=== PATIENT | female | born 1935 | race Caucasian/White ===

== ENCOUNTER 2018-09-22 18:44 | Emergency (ER) | payer OTHER ==
--- OUTSIDE RECORDS SUMMARY | 2018-09-22 18:46 | XMS REPORT ---
:1935 [facility] Address [address] [place] [address] Dr. Cooper [address] [place] [id number] Care Team Providers Name Role Phone Unavailable Unavailable Unavailable Problems This patient has no known problems. Allergies, Adverse Reactions, Alerts This patient has no known allergies or adverse reactions. Medications This patient has no known medications.
[2018-09-22 19:52] LABS: Urine Blood NEGATIVE (NEG); Urine Glucose NEGATIVE (NEG); Urine Protein NEGATIVE (NEG); Urine Specific Gravity <1.005 (1.005-1.030); Urine pH 5.5 (5.0-7.0)
[2018-09-22 20:01] LABS: Absolute Lymphocytes (CBC) 1.4 K/uL (0.7-4.9); Absolute Monocytes 0.5 K/uL (0.1-1.3); Absolute Neutrophil 3.2 K/uL (1.8-8.0); Basophils % 0.5 % (0-1.3); Hematocrit 34.7 % (36.0-45.0); Lymphocytes % 27.2 % (15.3-44.8); MPV 7.5 fL (7.6-11.3); Monocytes % 9.2 % (3.3-12.3); RBC Red Blood Cell Count 3.79 M/uL (3.86-4.86)
[2018-09-22] MEDS ORDERED: NA CHLORIDE 0.9% 1,000 ML ONE (20:08)
[2018-09-22 20:16] LABS: Protime INR 0.9
[2018-09-22 20:17] LABS: ALT/SGPT 18 U/L (12-78); AST/SGOT 19 U/L (15-37); Albumin 3.3 g/dL (3.4-5.0); Alkaline Phosphatase 70 U/L (45-117); BUN Blood Urea Nitrogen 9 mg/dL (7-18); Bicarbonate 30 mmol/L (21-32); Bilirubin Direct 0.1 mg/dL (0-0.2); Bilirubin Total 0.5 mg/dL (0.2-1.0); CKMB Creatine Kinase MB 2.4 ng/mL (0.3-3.6); Creatine Phosphokinase 70 U/L (26-192); Glucose Level 111 mg/dL (74-106); Lipase 165 U/L (73-393); Potassium 3.5 mmol/L (3.5-5.1); Protein, Total 6.2 g/dL (6.4-8.2); Sodium Level 140 mmol/L (136-145); Troponin (Emerg Dept Use Only) < 0.02 ng/mL (0.0-0.045)
--- NOTE | 2018-09-22 21:09 | EDPHYS ---
Physician Documentation [facility] Name: Mary Damian Age: 83 yrs Sex: Female : 1935 Arrival Date: 09/22/2018 Time: 18:46 Bed 30 Private MD: ED Physician Naun Looney HPI: 09/22 19:45 This 83 yrs old Female presents to ER via EMS with complaints of ma2 lightheadedness . 19:45 Onset: The symptoms/episode began/occurred gradually, 1 week(s) ago. Severity of ma2 symptoms: At their worst the symptoms were moderate in the emergency department the symptoms are unchanged. The patient has experienced similar episodes in the past. Historical: - Allergies: 19:00 BENZODIAZEPINES; ( Ativan, Lorazepam, Librax); ca1 19:00 Codeine; ca1 19:00 Morphine; ca1 19:00 Actonel; ca1 19:00 Evista; ca1 19:00 Pure Vitamins; ca1 19:00 Very Sensitive to Hogh dosage of any meds; ca1 - Home Meds: 19:00 metoprolol succinate 25 mg oral Tb24 2 tabs once daily [Active]; aspirin 325 mg Oral ca1 tab 0.5 tab once daily [Active]; Citracal Oral [Active]; hydrocortisone acetate 25 mg Rectal supp prn for Hemorrhoids [Active]; Deplin (algal oil) oral oral [Active]; Chlordiazepoxide 2.5mg Oral 1 cap daily [Active]; - PMHx: 19:00 Irritable bowel syndrome; Irregular heart rate; ca1 - PSHx: 19:00 Hysterectomy; foot surgery; Cataract Surgery; ca1 - Immunization history:: Adult Immunizations up to date, Pneumococcal vaccine is up to date, Flu vaccine is up to date. - Social history:: Smoking status: Patient/guardian denies using tobacco, Patient/guardian denies using alcohol, street drugs, The patient lives with family. - Ebola Screening: : No symptoms or risks identified at this time. - Family history:: not pertinent. - Hospitalizations: : No recent hospitalization is reported. ROS: 19:45 Constitutional: Negative for fever, chills, and weight loss, Eyes: Negative for injury, ma2 pain, redness, and discharge, Cardiovascular: Negative for chest pain, palpitations, and edema, Respiratory: Negative for shortness of breath, cough, wheezing, and pleuritic chest pain, Abdomen/GI: Negative for abdominal pain, nausea, diarrhea, and constipation, MS/Extremity: Negative for injury and deformity, Neuro: Negative for headache, weakness, numbness, tingling, and seizure. 19:45 All other systems are negative. Exam: 19:45 Constitutional: This is a well developed, well nourished patient who is awake, alert, ma2 and in no acute distress. Head/Face: Normocephalic, atraumatic. Eyes: Pupils equal round and reactive to light, extra-ocular motions intact. Lids and lashes normal. Conjunctiva and sclera are non-icteric and not injected. Cornea within normal limits. Periorbital areas with no swelling, redness, or edema. ENT: Nares patent. No nasal discharge, no septal abnormalities noted. Tympanic membranes are normal and external auditory canals are clear. Oropharynx with no redness, swelling, or masses, exudates, or evidence of obstruction, uvula midline. Mucous membranes moist. Neck: Trachea midline, no thyromegaly or masses palpated, and no cervical lymphadenopathy. Supple, full range of motion without nuchal rigidity, or vertebral point tenderness. No Meningismus. Chest/axilla: Normal chest wall appearance and motion. Nontender with no deformity. No lesions are appreciated. Cardiovascular: Regular rate and rhythm with a normal S1 and S2. No gallops, murmurs, or rubs. Normal PMI, no JVD. No pulse deficits. Respiratory: Lungs have equal breath sounds bilaterally, clear to auscultation and percussion. No rales, rhonchi or wheezes noted. No increased work of breathing, no retractions or nasal flaring. Abdomen/GI: Soft, non-tender, with normal bowel sounds. No distension or tympany. No guarding or rebound. No evidence of tenderness throughout. Back: No spinal tenderness. No costovertebral tenderness. Full range of motion. Skin: Warm, dry with normal turgor. Normal color with no rashes, no lesions, and no evidence of cellulitis. MS/ Extremity: Pulses equal, no cyanosis. Neurovascular intact. Full, normal range of motion. Neuro: Awake and alert, GCS 15, oriented to person, place, time, and situation. Cranial nerves II-XII grossly intact. Motor strength 5/5 in all extremities. Sensory grossly intact. Cerebellar exam normal. Normal gait. Vital Signs: 19:00 BP 149 / 76; Pulse 67; Resp 18; Temp 98.5; Pulse Ox 98% on R/A; Weight 48.99 kg; Height ca1 5 ft. 2 in. (157.48 cm); Pain 0/10; 20:00 BP 130 / 59; Pulse 63; Resp 19; Pulse Ox 97% on R/A; ca1 21:13 BP 113 / 92; Pulse 60; Resp 19; Pulse Ox 98% on R/A; ca1 19:00 Body Mass Index 19.75 (48.99 kg, 157.48 cm) ca1 MDM: 19:10 Patient medically screened. ma2 19:45 Differential Diagnosis dehydration, URI, pneumonia . ma2 21:08 Data reviewed: vital signs, nurses notes. Counseling: I had a detailed discussion with ma2 the patient and/or guardian regarding: the historical points, exam findings, and any diagnostic results supporting the discharge/admit diagnosis, the presence of at least one elevated blood pressure reading (>120/80) during this emergency department visit, the need for outpatient follow up. Response to treatment: the patient's symptoms have markedly improved after treatment. 09/22 19:32 Order name: Basic Metabolic Panel; Complete Time: 20:40 ma2 09/22 19:32 Order name: CBC with Diff; Complete Time: 20:40 ma2 09/22 19:32 Order name: Ckmb; Complete Time: 20:40 ma2 09/22 19:32 Order name: CPK; Complete Time: 20:40 ma2 09/22 19:32 Order name: Hepatic Function; Complete Time: 20:40 ma2 09/22 19:32 Order name: Lipase; Complete Time: 20:40 ma2 09/22 19:32 Order name: Magnesium; Complete Time: 20:40 ma2 09/22 19:32 Order name: Protime (+inr); Complete Time: 20:40 ma2 09/22 19:32 Order name: Ptt, Activated; Complete Time: 20:40 ma2 09/22 19:32 Order name: Troponin (emerg Dept Use Only); Complete Time: 20:40 ma2 09/22 19:32 Order name: EKG; Complete Time: 19:32 ma2 09/22 19:32 Order name: Cardiac monitoring; Complete Time: 20:53 ma2 09/22 19:37 Order name: Urine Dipstick--Ancillary (enter results); Complete Time: 20:40 ar5 09/22 19:32 Order name: EKG - Nurse/Tech; Complete Time: 20:53 ma2 09/22 19:32 Order name: IV Saline Lock; Complete Time: 20:53 ma2 09/22 19:32 Order name: Labs collected and sent; Complete Time: 20:53 ma2 09/22 19:32 Order name: NPO; Complete Time: 20:53 ma2 09/22 19:32 Order name: O2 Per Protocol; Complete Time: 20:53 ma2 09/22 19:32 Order name: O2 Sat Monitoring; Complete Time: 20:53 ma2 09/22 19:32 Order name: Urine Dipstick-Ancillary (obtain specimen); Complete Time: 20:53 ma2 Administered Medications: 19:55 Drug: NS 0.9% 1000 ml Route: IV; Rate: 1 bolus; Site: left forearm; ca1 21:00 Follow up: IV Status: Completed infusion ca1 Disposition: 09/22/18 21:09 Discharged to Home. Impression: Dehydration. - Condition is Stable. - Discharge Instructions: Dehydration, Adult. - Medication Reconciliation Form, Thank You Letter, Antibiotic Education, Prescription Opioid Use form. - Follow up: Private Physician; When: Tomorrow; Reason: Continuance of care. Signatures: Dispatcher [employer] EDMS Naun Looney MD MD ma2 Anette Sosa RN RN ca1 Corrections: (The following items were deleted from the chart) 21:32 21:09 09/22/2018 21:09 Discharged to Home. Impression: Dehydration. Condition is ca1 Stable. Forms are Medication Reconciliation Form, Thank You Letter, Antibiotic Education, Prescription Opioid Use. Follow up: Private Physician; When: Tomorrow; Reason: Continuance of care. ma2
--- NOTE | 2018-09-22 21:09 | ER ---
Nurse's Notes [facility] Name: Mary Damian Age: 83 yrs Sex: Female : 1935 Arrival Date: 09/22/2018 Time: 18:46 Bed 30 Private MD: Diagnosis: Dehydration Presentation: 09/22 18:47 Presenting complaint: EMS states: Pt had episodes of near syncope episode on Saturday. ca1 Was seen at [facility] for dehydration and sent home. Today at noon time, pt complains of dizziness and weakness. VS stable, O2 sat 100% at RA. Transition of care: patient was not received from another setting of care. Onset of symptoms was September 22, 2018. Risk Assessment: Do you want to hurt yourself or someone else? Patient reports no desire to harm self or others. Initial Sepsis Screen: Does the patient meet any 2 criteria? No. Patient's initial sepsis screen is negative. Does the patient have a suspected source of infection? No. Patient's initial sepsis screen is negative. Care prior to arrival: IV initiated. 20 GA, in the left forearm, Glucose check: 119. 18:47 Method Of Arrival: EMS: [facility] ca1 18:47 Acuity: NICOLAS 3 ca1 Triage Assessment: 19:00 General: Appears in no apparent distress. comfortable, Behavior is calm, cooperative, ca1 appropriate for age. Pain: Denies pain. Historical: - Allergies: 19:00 BENZODIAZEPINES; ( Ativan, Lorazepam, Librax); ca1 19:00 Codeine; ca1 19:00 Morphine; ca1 19:00 Actonel; ca1 19:00 Evista; ca1 19:00 Pure Vitamins; ca1 19:00 Very Sensitive to Hogh dosage of any meds; ca1 - Home Meds: 19:00 metoprolol succinate 25 mg oral Tb24 2 tabs once daily [Active]; aspirin 325 mg Oral ca1 tab 0.5 tab once daily [Active]; Citracal Oral [Active]; hydrocortisone acetate 25 mg Rectal supp prn for Hemorrhoids [Active]; Deplin (algal oil) oral oral [Active]; Chlordiazepoxide 2.5mg Oral 1 cap daily [Active]; - PMHx: 19:00 Irritable bowel syndrome; Irregular heart rate; ca1 - PSHx: 19:00 Hysterectomy; foot surgery; Cataract Surgery; ca1 - Immunization history:: Adult Immunizations up to date, Pneumococcal vaccine is up to date, Flu vaccine is up to date. - Social history:: Smoking status: Patient/guardian denies using tobacco, Patient/guardian denies using alcohol, street drugs, The patient lives with family. - Ebola Screening: : No symptoms or risks identified at this time. - Family history:: not pertinent. - Hospitalizations: : No recent hospitalization is reported. Screenin:00 Abuse screen: Denies threats or abuse. Denies injuries from another. Nutritional ca1 screening: No deficits noted. Tuberculosis screening: No symptoms or risk factors identified. Fall Risk Fall in past 12 months (25 points). Assessment: 19:00 General: Appears in no apparent distress. comfortable, Behavior is calm, cooperative, ca1 appropriate for age. General:. Pain: Denies pain. Neuro: Neuro: Level of Consciousness is awake, alert, obeys commands, Oriented to person, place, time, situation, Reports dizziness, since 3 days ago. Cardiovascular: Heart tones S1 S2 present Capillary refill < 3 seconds Patient's skin is warm and dry. Respiratory: Airway is patent Respiratory effort is even, unlabored, Respiratory pattern is regular, symmetrical, Breath sounds are clear bilaterally. GI: Abdomen is flat, non-distended, Bowel sounds present X 4 quads. Abd is soft and non tender X 4 quads. Reports diarrhea, couple of weeks prior to dizziness. : No deficits noted. No signs and/or symptoms were reported regarding the genitourinary system. EENT: No deficits noted. No signs and/or symptoms were reported regarding the EENT system. Derm: Skin is intact, is fragile, Skin is pink, warm \T\ dry. Musculoskeletal: Circulation, motion, and sensation intact. Capillary refill < 3 seconds. 20:00 Reassessment: Patient appears in no apparent distress at this time. No changes from ca1 previously documented assessment. Patient and/or family updated on plan of care and expected duration. Pain level reassessed. Patient is alert, oriented x 3, equal unlabored respirations, skin warm/dry/pink. 21:13 Reassessment: Patient appears in no apparent distress at this time. Patient and/or ca1 family updated on plan of care and expected duration. Pain level reassessed. Patient is alert, oriented x 3, equal unlabored respirations, skin warm/dry/pink. Vital Signs: 19:00 BP 149 / 76; Pulse 67; Resp 18; Temp 98.5; Pulse Ox 98% on R/A; Weight 48.99 kg; Height ca1 5 ft. 2 in. (157.48 cm); Pain 0/10; 20:00 BP 130 / 59; Pulse 63; Resp 19; Pulse Ox 97% on R/A; ca1 21:13 BP 113 / 92; Pulse 60; Resp 19; Pulse Ox 98% on R/A; ca1 19:00 Body Mass Index 19.75 (48.99 kg, 157.48 cm) ca1 ED Course: 18:46 Patient arrived in ED. ca1 18:50 Triage completed. ca1 19:00 Arm band placed on. Arm band placed on right wrist. EKG completed in triage. Results ca1 shown to MD. 19:00 Patient has correct armband on for positive identification. Placed in gown. Bed in low ca1 position. Call light in reach. Side rails up X 1. residential monitor on. Pulse ox on. NIBP on. Warm blanket given. 19:00 Maintain EMS IV. Dressing intact. Good blood return noted. Site clean \T\ dry. Gauge \T\ ca 1 site: #20 at [facility]. 19:10 Naun Looney MD is Attending Physician. ma2 19:55 Anette Sosa, TAMIKO is Primary Nurse. ca1 21:25 No provider procedures requiring assistance completed. IV discontinued, intact, ca1 bleeding controlled, No redness/swelling at site. Pressure dressing applied. Administered Medications: 19:55 Drug: NS 0.9% 1000 ml Route: IV; Rate: 1 bolus; Site: left forearm; ca1 21:00 Follow up: IV Status: Completed infusion ca1 Outcome: 21:09 Discharge ordered by . ma2 21:25 Discharged to home via wheelchair. ca1 21:25 Condition: stable 21:25 Discharge instructions given to patient, Instructed on discharge instructions, follow up and referral plans. Demonstrated understanding of instructions, follow-up care. 21:32 Patient left the ED. ca1 Signatures: Naun Looney MD MD scAnette Roman RN RN ca1
[2018-09-22 23:13] VITALS: TEMP 98.5
[2018-09-22 23:16] VITALS: BP 113/92; O2SAT 98
--- NOTE | 2018-09-23 05:58 | EKG ---
Test Date: 2018-09-22 Test Time: 18:55:44 Asset Management Coordinator: GRUPOT MEASUREMENT RESULTS: Intervals: Rate: 62 OH: 194 QRSD: 82 QT: 406 QTc: 412 [place]: P: 8 OH: 194 QRS: 21 T: 28 INTERPRETIVE STATEMENTS: Sinus rhythm with occasional premature ventricular complexes Abnormal ECG Compared to ECG 03/17/2015 17:02:42 Ventricular premature complex(es) now present Electronically Signed On 09-23-18 05:56:48 CDT by Gerardo Johnson
== END 2018-09-22 21:32 | disposition home or self-care (01) ==
LOC: ER 18:44
DX: E86.0 Dehydration (principal); Z79.82 Long term (current) use of aspirin; Z88.5 Allergy status to narcotic agent; Z88.8 Allergy status to other drugs, medicaments and biological substances; Z91.048 Other nonmedicinal substance allergy status
CPT/HCPCS: 93005; 85025; 80048; 36415; 83735; 82550; 85610; 80076; 85730; 81003; 84484; 82553; 83690; 96360; 99284; J7030

== ENCOUNTER 2018-10-07 08:45 | Emergency (ER) | payer OTHER ==
--- OUTSIDE RECORDS SUMMARY | 2018-10-07 08:54 | XMS REPORT ---
:1935 [facility] Address [address] [place] [address] Dr. Cooper [address] [place] [id number] Care Team Providers Name Role Phone Unavailable Unavailable Unavailable Problems This patient has no known problems. Allergies, Adverse Reactions, Alerts This patient has no known allergies or adverse reactions. Medications This patient has no known medications.
[2018-10-07 09:43] LABS: Absolute Lymphocytes (CBC) 1.2 K/uL (0.7-4.9); Absolute Monocytes 0.6 K/uL (0.1-1.3); Absolute Neutrophil 4.1 K/uL (1.8-8.0); Basophils % 0.6 % (0-1.3); Eosinophils % 0.6 % (0-4.4); Hematocrit 39.9 % (36.0-45.0); Lymphocytes % 19.7 % (15.3-44.8); Protime INR 0.93
--- NOTE | 2018-10-07 09:55 | RAD REPORT ---
EXAM DESCRIPTION: Lilian Single View10/07/2018 9:41 am CLINICAL HISTORY: Cough COMPARISON: 2014 FINDINGS: The lungs are markedly hyperaerated. The lungs appear clear of acute infiltrate. The heart is normal size IMPRESSION: COPD without visualization acute abnormality
[2018-10-07 10:10] LABS: ALT/SGPT 18 U/L (12-78); AST/SGOT 17 U/L (15-37); Albumin 3.5 g/dL (3.4-5.0); Alkaline Phosphatase 94 U/L (45-117); BUN Blood Urea Nitrogen 7 mg/dL (7-18); Bicarbonate 27 mmol/L (21-32); Bilirubin Direct 0.1 mg/dL (0-0.2); Bilirubin Total 0.5 mg/dL (0.2-1.0); Glucose Level 203 mg/dL (74-106); Magnesium 2.3 mg/dL (1.8-2.4); NT PRO-BNP 254 pg/mL (<450); Potassium 3.6 mmol/L (3.5-5.1); Protein, Total 7.6 g/dL (6.4-8.2); Sodium Level 135 mmol/L (136-145); Thyroid Stimulating Hormone 0.975 uIU/mL (0.360-3.740); Troponin (Emerg Dept Use Only) < 0.02 ng/mL (0.0-0.045)
--- NOTE | 2018-10-07 10:29 | ER ---
Nurse's Notes [facility] Name: Mary Damian Age: 83 yrs Sex: Female : 1935 Arrival Date: 10/07/2018 Time: 08:47 Bed 17 Private MD: Hans Yoo V Diagnosis: Palpitations;Chronic obstructive pulmonary disease, unspecified;Type 2 diabetes mellitus Presentation: 10/07 08:48 Presenting complaint: Patient states: i has been going on since the , we were at tw2 the [employer] and i passed out, [facility], went home couple of days later i ended up here, i have been going down hill ever since, my heart rate i cant it stabilized, i have IBS, i do not having a fib, i am hurting in my upper stomach and i am nauseated. Transition of care: patient was not received from another setting of care. Onset of symptoms was October 07, 2018. Risk Assessment: Do you want to hurt yourself or someone else? Patient reports no desire to harm self or others. Initial Sepsis Screen: Does the patient meet any 2 criteria? No. Patient's initial sepsis screen is negative. Does the patient have a suspected source of infection? No. Patient's initial sepsis screen is negative. Care prior to arrival: None. 08:48 Method Of Arrival: Wheelchair tw2 08:48 Acuity: NICOLAS 3 tw2 Triage Assessment: 08:52 General: Appears in no apparent distress. Behavior is calm, cooperative, appropriate tw2 for age. Pain: Complains of pain in epigastric area. GI: Reports nausea. Historical: - Allergies: 08:52 Actonel; tw2 08:52 BENZODIAZEPINES; ( Ativan, Lorazepam, Librax); tw2 08:52 Codeine; tw2 08:52 Evista; tw2 08:52 Morphine; tw2 08:52 Pure Vitamins; tw2 08:52 Librax; tw2 - Home Meds: 08:52 metoprolol succinate 25 mg Oral Tb24 2 tabs once daily [Active]; Deplin (algal oil) tw2 Oral [Active]; aspirin 325 mg Oral tab 0.5 tab once daily [Active]; - PMHx: 08:52 Irregular heart rate; Irritable bowel syndrome; tw2 - PSHx: 08:52 Hysterectomy; foot surgery; Cataract Surgery; tw2 - Immunization history:: Adult Immunizations. - Social history:: Smoking status: . - Ebola Screening: : Patient denies travel to an Ebola-affected area in the 21 days before illness onset. Screenin:14 Abuse screen: Denies threats or abuse. Denies injuries from another. Nutritional jl7 screening: No deficits noted. Tuberculosis screening: No symptoms or risk factors identified. 10:15 Fall Risk IV access (20 points). Total Mann Fall Scale indicates No Risk (0-24 pts). jl7 Assessment: 09:05 General: Appears in no apparent distress. uncomfortable, Behavior is calm, cooperative, jl7 appropriate for age, Pt reports dx with the flu last Saturday and is just getting over it.. Pain: Complains of pain in mid-sternal area Pain does not radiate. Pain currently is 6 out of 10 on a pain scale. Quality of pain is described as burning, Pain began 2-3 days ago. Is intermittent. Neuro: Level of Consciousness is awake, alert, obeys commands, Oriented to person, place, time, situation. Cardiovascular: Reports palpitations, Patient's skin is warm and dry. Rhythm is sinus rhythm. Respiratory: Airway is patent Respiratory effort is even, unlabored, Respiratory pattern is regular, symmetrical, Denies shortness of breath. GI: No signs and/or symptoms were reported involving the gastrointestinal system. : No signs and/or symptoms were reported regarding the genitourinary system. EENT: No signs and/or symptoms were reported regarding the EENT system. Derm: Skin is pink, warm \\T\\ dry. 09:14 Reassessment: Reports "I have an appointment schedule with Dr. Adames today a 4:00 pm.". jl7 10:15 Reassessment: Patient appears in no apparent distress at this time. No changes from jl7 previously documented assessment. Patient and/or family updated on plan of care and expected duration. Pain level reassessed. Patient is alert, oriented x 3, equal unlabored respirations, skin warm/dry/pink. Vital Signs: 08:50 BP 164 / 88; Pulse 81; Resp 17; Temp 98.7(TE); Pulse Ox 96% on R/A; Weight 47.63 kg tw2 (R); Pain 5/10; 10:15 BP 153 / 80; Pulse 66; Resp 16 S; Pulse Ox 97% on R/A; jl7 11:17 BP 137 / 72; Pulse 63; Resp 16 S; Pulse Ox 97% on R/A; jl7 ED Course: 08:47 Patient arrived in ED. mr 08:47 Hans Yoo MD is Private Physician. mr 08:50 Triage completed. tw2 08:50 Arm band placed on. tw2 08:53 Frantz Small RN is Primary Nurse. jl7 09:11 Bossman Rubio MD is Attending Physician. alden 09:14 Patient has correct armband on for positive identification. Placed in gown. Bed in low jl7 position. Call light in reach. Side rails up X 1. chainstitch sewing machine operator on. Pulse ox on. NIBP on. Warm blanket given. 09:14 Patient maintains SpO2 saturation greater than 95% on room air. jl7 09:38 X-ray completed. Portable x-ray completed in exam room. jr1 09:39 XRAY Chest (1 view) In Process Unspecified. EDMS 09:45 Initial lab(s) drawn, by ut, sent to lab. Urine collected: clean catch specimen, clear. jl7 Inserted saline lock: 22 gauge in right forearm, using aseptic technique. Blood collected. 10:04 EKG done, by farm operations technical director. reviewed by Bossman Rubio MD. dt2 10:28 Hans Yoo MD is Referral Physician. alden 11:18 No provider procedures requiring assistance completed. IV discontinued, intact, jl7 bleeding controlled, No redness/swelling at site. Pressure dressing applied. Administered Medications: No medications were administered Outcome: 10:28 Discharge ordered by . alden 11:19 Discharged to home ambulatory. jl7 11:19 Condition: stable 11:19 Discharge instructions given to patient, family, Instructed on discharge instructions, follow up and referral plans. Demonstrated understanding of instructions, follow-up care. 11:19 Patient left the ED. jl7 Signatures: Dispatcher [employer] EDMS Bossman Rubio MD MD cha Rivera, Mary mr Koroma, Patricia jr1 Moira Doe, TAMIKO RN tw2 Frantz Small, TAMIKO MORRISON jl7 Tess Hastings dt2
--- NOTE | 2018-10-07 10:30 | EDPHYS ---
Physician Documentation [facility] Name: Mary Damian Age: 83 yrs Sex: Female : 1935 Arrival Date: 10/07/2018 Time: 08:47 Bed 17 Private MD: Hans Yoo V ED Physician Bossman Rubio HPI: 10/07 09:47 This 83 yrs old Female presents to ER via Wheelchair with complaints of alden Palpitations. 09:47 The patient presents with a history of irregular heart beat, heart racing. Context: The alden symptoms occur at rest. Onset: The symptoms/episode began/occurred 3 day(s) ago. Associated signs and symptoms: The patient has no apparent associated signs or symptoms. Severity of symptoms: At their worst the symptoms were very mild. Historical: - Allergies: 08:52 Actonel; tw2 08:52 BENZODIAZEPINES; ( Ativan, Lorazepam, Librax); tw2 08:52 Codeine; tw2 08:52 Evista; tw2 08:52 Morphine; tw2 08:52 Pure Vitamins; tw2 08:52 Librax; tw2 - Home Meds: 08:52 metoprolol succinate 25 mg Oral Tb24 2 tabs once daily [Active]; Deplin (algal oil) tw2 Oral [Active]; aspirin 325 mg Oral tab 0.5 tab once daily [Active]; - PMHx: 08:52 Irregular heart rate; Irritable bowel syndrome; tw2 - PSHx: 08:52 Hysterectomy; foot surgery; Cataract Surgery; tw2 - Immunization history:: Adult Immunizations. - Social history:: Smoking status: . - Ebola Screening: : Patient denies travel to an Ebola-affected area in the 21 days before illness onset. ROS: 09:47 Constitutional: Negative for fever, chills, and weight loss, Eyes: Negative for injury, alden pain, redness, and discharge, ENT: Negative for injury, pain, and discharge, Neck: Negative for injury, pain, and swelling, Respiratory: Negative for shortness of breath, cough, wheezing, and pleuritic chest pain, Back: Negative for injury and pain, : Negative for injury, bleeding, discharge, and swelling, MS/Extremity: Negative for injury and deformity, Skin: Negative for injury, rash, and discoloration, Neuro: Negative for headache, weakness, numbness, tingling, and seizure, Psych: Negative for depression, anxiety, suicide ideation, homicidal ideation, and hallucinations, Allergy/Immunology: Negative for hives, rash, and allergies, Endocrine: Negative for neck swelling, polydipsia, polyuria, polyphagia, and marked weight changes, Hematologic/Lymphatic: Negative for swollen nodes, abnormal bleeding, and unusual bruising. 09:47 Cardiovascular: Positive for palpitations. 09:47 Abdomen/GI: Positive for abdominal pain, nausea. 09:47 Neuro: Positive for near syncope, weakness. Exam: 09:47 Constitutional: This is a well developed, well nourished patient who is awake, alert, alden and in no acute distress. Head/Face: Normocephalic, atraumatic. Eyes: Pupils equal round and reactive to light, extra-ocular motions intact. Lids and lashes normal. Conjunctiva and sclera are non-icteric and not injected. Cornea within normal limits. Periorbital areas with no swelling, redness, or edema. ENT: Nares patent. No nasal discharge, no septal abnormalities noted. Tympanic membranes are normal and external auditory canals are clear. Oropharynx with no redness, swelling, or masses, exudates, or evidence of obstruction, uvula midline. Mucous membranes moist. Neck: Trachea midline, no thyromegaly or masses palpated, and no cervical lymphadenopathy. Supple, full range of motion without nuchal rigidity, or vertebral point tenderness. No Meningismus. Chest/axilla: Normal chest wall appearance and motion. Nontender with no deformity. No lesions are appreciated. Cardiovascular: Regular rate and rhythm with a normal S1 and S2. No gallops, murmurs, or rubs. Normal PMI, no JVD. No pulse deficits. Respiratory: Lungs have equal breath sounds bilaterally, clear to auscultation and percussion. No rales, rhonchi or wheezes noted. No increased work of breathing, no retractions or nasal flaring. Abdomen/GI: Soft, non-tender, with normal bowel sounds. No distension or tympany. No guarding or rebound. No evidence of tenderness throughout. Back: No spinal tenderness. No costovertebral tenderness. Full range of motion. Female : Normal external genitalia. Skin: Warm, dry with normal turgor. Normal color with no rashes, no lesions, and no evidence of cellulitis. MS/ Extremity: Pulses equal, no cyanosis. Neurovascular intact. Full, normal range of motion. Neuro: Awake and alert, GCS 15, oriented to person, place, time, and situation. Cranial nerves II-XII grossly intact. Motor strength 5/5 in all extremities. Sensory grossly intact. Cerebellar exam normal. Normal gait. Psych: Awake, alert, with orientation to person, place and time. Behavior, mood, and affect are within normal limits. 11:02 Cardiovascular: Heart sounds: normal, normal S1and S2, no S3 or S4, no murmur, no rub, alden no gallop, JVD: is not appreciated. 11:02 Musculoskeletal/extremity: DVT Exam: No signs of deep vein thrombosis. no pain, no swelling, no tenderness, negative Homans' sign noted on exam, no appreciated bluish discoloration, no erythema, no increased warmth. Vital Signs: 08:50 BP 164 / 88; Pulse 81; Resp 17; Temp 98.7(TE); Pulse Ox 96% on R/A; Weight 47.63 kg tw2 (R); Pain 5/10; 10:15 BP 153 / 80; Pulse 66; Resp 16 S; Pulse Ox 97% on R/A; jl7 11:17 BP 137 / 72; Pulse 63; Resp 16 S; Pulse Ox 97% on R/A; jl7 MDM: 09:42 Patient medically screened. [facility] 09:49 Data reviewed: vital signs, nurses notes, lab test result(s), EKG, radiologic studies. 10/07 09:12 Order name: Basic Metabolic Panel 10/07 09:12 Order name: CBC with Diff 10/07 09:12 Order name: LFT's; Complete Time: 10:25 alden 10/07 09:12 Order name: Magnesium; Complete Time: 10:25 alden 10/07 09:12 Order name: NT PRO-BNP; Complete Time: 10:25 alden 10/07 09:12 Order name: PT-INR; Complete Time: 10:25 [facility] 10/07 09:12 Order name: Troponin (emerg Dept Use Only); Complete Time: 10:25 alden 10/07 09:12 Order name: XRAY Chest (1 view); Complete Time: 10:25 [facility] 10/07 09:12 Order name: TSH; Complete Time: 10:25 [facility] 10/07 09:12 Order name: Urine Culture [facility] 10/07 09:12 Order name: Basic Metabolic Panel; Complete Time: 10:25 ED[facility] 10/07 09:12 Order name: CBC with Automated Diff; Complete Time: 10:25 [facility] 10/07 09:47 Order name: Lipase; Complete Time: 10:25 [facility] 10/07 09:58 Order name: Urine Dipstick--Ancillary (enter results) 10/07 09:10 Order name: EKG; Complete Time: 09:10 [facility] 10/07 09:10 Order name: EKG - Nurse/Tech; Complete Time: 10: [facility] 10/07 09:12 Order name: Cardiac monitoring; Complete Time: 10: [facility] 10/07 09:12 Order name: IV Saline Lock; Complete Time: 10:02 [facility] 10/07 09:12 Order name: Labs collected and sent; Complete Time: 10:02 [facility] 10/07 09:12 Order name: O2 Per Protocol; Complete Time: 10: [facility] 10/07 09:12 Order name: O2 Sat Monitoring; Complete Time: 10: [facility] 10/07 09:12 Order name: Urine Dipstick-Ancillary (obtain specimen); Complete Time: 10:02 [facility] Administered Medications: No medications were administered Disposition: 10/07/18 10:28 Discharged to Home. Impression: Palpitations, Chronic obstructive pulmonary disease, unspecified, Type 2 diabetes mellitus. - Condition is Stable. - Discharge Instructions: Chronic Bronchitis, Type 2 Diabetes Mellitus, Diagnosis, Adult, Palpitations, Cough, Adult, [id number], Palpitations, [place], Type 2 Diabetes Mellitus, Diagnosis, Adult, [id number]. - Medication Reconciliation Form, Thank You Letter, Antibiotic Education, Prescription Opioid Use form. - Follow up: Hans Yoo; When: 1 - 2 days; Reason: Recheck today's complaints, Continuance of care, Re-evaluation by your physician. - Problem is new. - Symptoms have improved. Signatures: Dispatcher [employer] EDOH Bossman Rubio MD MD cha Wise, Tara, RN RN tw2 Frantz Small RN RN jl7 Corrections: (The following items were deleted from the chart) 11:19 10:28 10/07/2018 10:28 Discharged to Home. Impression: Palpitations; Chronic jl7 obstructive pulmonary disease, unspecified; Type 2 diabetes mellitus. Condition is Stable. Discharge Instructions: Chronic Bronchitis, Type 2 Diabetes Mellitus, Diagnosis, Adult, Palpitations, Cough, Adult, Cvxq-[id number], Palpitations, Qgts-lc-Poeq, Type 2 Diabetes Mellitus, Diagnosis, Adult, [id number]. Forms are Medication Reconciliation Form, Thank You Letter, Antibiotic Education, Prescription Opioid Use. Follow up: Hans Yoo; When: 1 - 2 days; Reason: Recheck today's complaints, Continuance of care, Re-evaluation by your physician. Problem is new. Symptoms have improved. alden
[2018-10-07] MEDS ORDERED: NA CHLORIDE 0.9% 1,000 ML ONE (10:33)
[2018-10-07 13:17] LABS: Urine Blood NEGATIVE (NEG); Urine Glucose 2+ (NEG); Urine Protein NEGATIVE (NEG); Urine Specific Gravity <1.005 (1.005-1.030); Urine pH 6.5 (5.0-7.0)
[2018-10-08 01:49] VITALS: TEMP 98.7
[2018-10-08 01:50] VITALS: O2SAT 97
[2018-10-08 01:52] VITALS: BP 137/72
== END 2018-10-07 11:19 | disposition home or self-care (01) ==
LOC: ER 08:45
DX: J44.9 Chronic obstructive pulmonary disease, unspecified (principal); E11.9 Type 2 diabetes mellitus without complications; Z79.82 Long term (current) use of aspirin; Z88.5 Allergy status to narcotic agent; Z88.8 Allergy status to other drugs, medicaments and biological substances; Z91.048 Other nonmedicinal substance allergy status
CPT/HCPCS: 93005; 87088; 85025; 87086; 80048; 36415; 83735; 85610; 80076; 84443; 81003; 84484; 83690; 83880; 71045; 99285; J7030

== ENCOUNTER 2018-10-16 12:08 | Observation (INO) | payer OTHER ==
--- OUTSIDE RECORDS SUMMARY | 2018-10-16 12:22 | XMS REPORT ---
:1935 [facility] Address [address] [place] [address] Dr. Cooper [address] [place] [id number] Care Team Providers Name Role Phone Unavailable Unavailable Unavailable Problems This patient has no known problems. Allergies, Adverse Reactions, Alerts This patient has no known allergies or adverse reactions. Medications This patient has no known medications.
[2018-10-16 12:32] LABS: Absolute Lymphocytes (CBC) 1.6 K/uL (0.7-4.9); Absolute Monocytes 0.5 K/uL (0.1-1.3); Absolute Neutrophil 4.3 K/uL (1.8-8.0); Basophils % 0.8 % (0-1.3); Eosinophils % 0.3 % (0-4.4); Hematocrit 39.9 % (36.0-45.0); Lymphocytes % 24.8 % (15.3-44.8); Monocytes % 8.1 % (3.3-12.3)
[2018-10-16 12:51] LABS: ALT/SGPT 21 U/L (12-78); AST/SGOT 22 U/L (15-37); Albumin 3.5 g/dL (3.4-5.0); Alkaline Phosphatase 77 U/L (45-117); BUN Blood Urea Nitrogen 8 mg/dL (7-18); Bicarbonate 27 mmol/L (21-32); Bilirubin Direct 0.2 mg/dL (0-0.2); Bilirubin Total 0.7 mg/dL (0.2-1.0); Glucose Level 117 mg/dL (74-106); Lipase 208 U/L (73-393); NT PRO-BNP 159 pg/mL (<450); Potassium 3.5 mmol/L (3.5-5.1); Protein, Total 6.9 g/dL (6.4-8.2); Sodium Level 138 mmol/L (136-145); Troponin (Emerg Dept Use Only) < 0.02 ng/mL (0.0-0.045)
--- NOTE | 2018-10-16 13:41 | RAD REPORT ---
EXAM DESCRIPTION: RAD - Chest Single View - 10/16/2018 1:35 pm CLINICAL HISTORY: CHEST PAIN Chest pain. COMPARISON: Chest Single View dated 10/07/2018; CHEST PA AND LAT 2 VIEW dated 03/17/2015; CHEST SINGLE VIEW dated 03/05/2014; CHEST SINGLE VIEW dated 04/20/2013 FINDINGS: Portable technique limits examination quality. The lungs are emphysematous but grossly clear. The heart is normal in size. No displaced fractures. IMPRESSION: Prominent COPD.
--- NOTE | 2018-10-16 14:19 | ER ---
Nurse's Notes [facility] Name: Mary Damian Age: 83 yrs Sex: Female : 1935 Arrival Date: 10/16/2018 Time: 12:14 Bed 5 Private MD: Diagnosis: Chest pain, unspecified;Dyspnea, unspecified Presentation: 10/16 12:16 Presenting complaint: EMS states: pt c/o dull chest pain that started about 0630 today, iw non radiating, recently stopped metoprolol X [address] Bryant. Transition of care: patient was not received from another setting of care. Onset of symptoms was October 16, 2018. Risk Assessment: Do you want to hurt yourself or someone else? Patient reports no desire to harm self or others. Initial Sepsis Screen: Does the patient meet any 2 criteria? No. Patient's initial sepsis screen is negative. Does the patient have a suspected source of infection? No. Patient's initial sepsis screen is negative. Care prior to arrival: Medication(s) given: Nitroglycerin, x 1, IV initiated. 20 GA, in the right antecubital area, Glucose check: 122. 12:16 Method Of Arrival: EMS: [facility] iw 12:16 Acuity: NICOLAS 3 iw Historical: - Allergies: 12:22 Actonel; iw 12:22 BENZODIAZEPINES; ( Ativan, Lorazepam, Librax); iw 12:22 Codeine; iw 12:22 Evista; iw 12:22 Librax; iw 12:22 Morphine; iw 12:22 Pure Vitamins; iw - Home Meds: 12:22 aspirin 325 mg Oral tab 0.5 tab once daily [Active]; Deplin (algal oil) Oral [Active]; iw - PMHx: 12:22 Irregular heart rate; Irritable bowel syndrome; iw - Immunization history:: Adult Immunizations up to date. - Social history:: Smoking status: Patient/guardian denies using tobacco. - Ebola Screening: : Patient negative for fever greater than or equal to 101.5 degrees Fahrenheit, and additional compatible Ebola Virus Disease symptoms Patient denies exposure to infectious person Patient denies travel to an Ebola-affected area in the 21 days before illness onset No symptoms or risks identified at this time. - Family history:: not pertinent. - Hospitalizations: : No recent hospitalization is reported. Screenin:24 Abuse screen: Denies threats or abuse. Denies injuries from another. Nutritional iw screening: No deficits noted. Tuberculosis screening: No symptoms or risk factors identified. 12:30 Fall Risk None identified. iw Assessment: 12:23 General: Appears in no apparent distress. Behavior is calm, cooperative. Pain: iw Complains of pain in epigastric area Pain began 1 hour ago. Neuro: Level of Consciousness is awake, alert, obeys commands, Moves all extremities. Cardiovascular: Patient's skin is warm and dry. Cardiovascular: Reports chest pain, nausea, palpitations, shortness of breath. Respiratory: Respiratory effort is even, unlabored, Respiratory pattern is regular. GI: Abdomen is flat, non-distended, Reports nausea. Derm: Skin is intact, is healthy with good turgor. Musculoskeletal: Range of motion: intact in all extremities. 13:27 Reassessment: Patient appears in no apparent distress at this time. Patient and/or iw family updated on plan of care and expected duration. Pain level reassessed. Patient is alert, oriented x 3, equal unlabored respirations, skin warm/dry/pink. 15:56 Reassessment: Patient appears in no apparent distress at this time. Patient and/or iw family updated on plan of care and expected duration. Pain level reassessed. Patient is alert, oriented x 3, equal unlabored respirations, skin warm/dry/pink. awaiting on floor orders from Dr. Yoo, left voicemail. Vital Signs: 12:19 BP 162 / 85; Pulse 96; Resp 16 S; Temp 98.2; Pulse Ox 98% on R/A; Weight 56.7 kg; iw Height 5 ft. 1 in. (154.94 cm); Pain 5/10; 13:49 BP 132 / 73; Pulse 82; Resp 16; Pulse Ox 98% on R/A; iw 14:37 BP 147 / 76; Pulse 80; Resp 16; Pulse Ox 98% on R/A; iw 15:56 BP 145 / 72; Pulse 91; Resp 16; Pulse Ox 98% on R/A; iw 12:19 Body Mass Index 23.62 (56.70 kg, 154.94 cm) iw ED Course: 12:14 Patient arrived in ED. rn 12:14 Rodolfo Busby MD is Attending Physician. rn 12:15 Soo Lobo, RN is Primary Nurse. iw 12:17 EKG done, by middle school technology teacher. reviewed by Rodolfo Busby MD. sm3 12:19 Triage completed. iw 12:22 Maintain EMS IV. Dressing intact. Good blood return noted. Site clean \T\ dry. Gauge \T\ iw site: 20 RAC. Patient maintains SpO2 saturation greater than 95% on room air. 12:23 Arm band placed on. iw 12:30 Patient has correct armband on for positive identification. conveyor monitor on. Pulse iw ox on. NIBP on. 13:19 XRAY Chest (1 view) In Process Unspecified. EDMS 14:17 Hans Yoo MD is Hospitalizing Provider. rn 15:37 No provider procedures requiring assistance completed. Patient admitted, IV remains in iw place. Administered Medications: No medications were administered Outcome: 14:18 Decision to Hospitalize by Provider. rn 16:30 Admitted to Tele accompanied by tech, via stretcher, with chart. iw 16:30 Condition: good 16:30 Discharge instructions given to patient, Instructed on the need for admit, Demonstrated understanding of instructions. 16:40 Patient left the ED. iw Signatures: Dispatcher [employer] EDMS Soo Lobo, TAMIKO MORRISON Rodolfo Busby MD MD rn Montes, Shakira sm3 Corrections: (The following items were deleted from the chart) 12:27 12:19 BP 162 / 85; Pulse 96bpm; Resp 16bpm; Spontaneous; Pulse Ox 98% RA; Pain 5/10; iw iw
--- NOTE | 2018-10-16 14:19 | EDPHYS ---
Physician Documentation [facility] Name: Mary Damian Age: 83 yrs Sex: Female : 1935 Arrival Date: 10/16/2018 Time: 12:14 Bed 5 Private MD: ED Physician Rodolfo Busby HPI: 10/16 13:06 This 83 yrs old Female presents to ER via EMS with complaints of Chest Pain. rn 13:06 The patient or guardian reports chest pain that is located primarily in the substernal rn area. Onset: this morning, today. The pain does not radiate. The chest pain is described as aching, dull, a heaviness. Duration: The patient or guardian reports a single episode, that is still ongoing. Modifying factors: The symptoms are alleviated by nothing. the symptoms are aggravated by nothing. Severity of pain: At its worst the pain was moderate in the emergency department the pain is unchanged. The patient has experienced similar episodes in the past. Reports chest pain, dull/heavy, began this morning, worse with standing, assoc with palpitations, reports has had numerous times in past, recently seen by cardiology, stopped metoprolol, no syncope, improved with nitro and aspirin. . Historical: - Allergies: 12:22 Actonel; iw 12:22 BENZODIAZEPINES; ( Ativan, Lorazepam, Librax); iw 12:22 Codeine; iw 12:22 Evista; iw 12:22 Librax; iw 12:22 Morphine; iw 12:22 Pure Vitamins; iw - Home Meds: 12:22 aspirin 325 mg Oral tab 0.5 tab once daily [Active]; Deplin (algal oil) Oral [Active]; iw - PMHx: 12:22 Irregular heart rate; Irritable bowel syndrome; iw - Immunization history:: Adult Immunizations up to date. - Social history:: Smoking status: Patient/guardian denies using tobacco. - Ebola Screening: : Patient negative for fever greater than or equal to 101.5 degrees Fahrenheit, and additional compatible Ebola Virus Disease symptoms Patient denies exposure to infectious person Patient denies travel to an Ebola-affected area in the 21 days before illness onset No symptoms or risks identified at this time. - Family history:: not pertinent. - Hospitalizations: : No recent hospitalization is reported. ROS: 13:06 Constitutional: Negative for fever, chills, and weight loss, Eyes: Negative for injury, rn pain, redness, and discharge, Neck: Negative for injury, pain, and swelling, Cardiovascular: Negative for edema Respiratory: Negative for shortness of breath, cough, wheezing, and pleuritic chest pain, Abdomen/GI: Negative for abdominal pain, nausea, vomiting, diarrhea, and constipation, MS/Extremity: Negative for injury and deformity, Skin: Negative for injury, rash, and discoloration, Neuro: Negative for headache, numbness, tingling, and seizure. Exam: 13:06 Constitutional: This is a well developed, well nourished patient who is awake, alert, rn and in no acute distress. Head/Face: Normocephalic, atraumatic. Neck: Trachea midline, no thyromegaly or masses palpated, and no cervical lymphadenopathy. Supple, full range of motion without nuchal rigidity, or vertebral point tenderness. No Meningismus. Cardiovascular: Regular rate and rhythm, No pulse deficits. Respiratory: Lungs have equal breath sounds bilaterally, clear to auscultation Abdomen/GI: soft, non-tender Skin: Warm, dry MS/ Extremity: Pulses equal, no cyanosis. Neurovascular intact. Neuro: Awake and alert, GCS 15, oriented to person, place, time, and situation. Cranial nerves II-XII grossly intact. Motor strength 5/5 in all extremities. Sensory grossly intact. 13:06 ECG was reviewed by the Attending Physician. Vital Signs: 12:19 BP 162 / 85; Pulse 96; Resp 16 S; Temp 98.2; Pulse Ox 98% on R/A; Weight 56.7 kg; iw Height 5 ft. 1 in. (154.94 cm); Pain 5/10; 13:49 BP 132 / 73; Pulse 82; Resp 16; Pulse Ox 98% on R/A; iw 14:37 BP 147 / 76; Pulse 80; Resp 16; Pulse Ox 98% on R/A; iw 15:56 BP 145 / 72; Pulse 91; Resp 16; Pulse Ox 98% on R/A; iw 12:19 Body Mass Index 23.62 (56.70 kg, 154.94 cm) iw MDM: 12:14 Patient medically screened. rn 14:15 Differential diagnosis: acute pericarditis, anxiety, coronary artery disease chest wall rn pain, costochondritis, esophagitis, gastritis, gastroesophageal reflux disease (GERD), pericarditis, pleurisy, pneumothorax. Data reviewed: vital signs, nurses notes, lab test result(s), EKG, radiologic studies, plain films, and as a result, I will admit patient. Counseling: I had a detailed discussion with the patient and/or guardian regarding: the historical points, exam findings, and any diagnostic results supporting the discharge/admit diagnosis, lab results, radiology results, the need for further work-up and treatment in the hospital. Admission orders: after a detailed discussion of the patient's condition and case, the admit orders are written by me. ED course: Consulted with Dr. Yoo, will observe and consulted cardiology. . 10/16 12:15 Order name: Basic Metabolic Panel; Complete Time: 13:05 rn 10/16 12:15 Order name: CBC with Diff; Complete Time: 13:05 rn 10/16 12:15 Order name: LFT's; Complete Time: 13:05 rn 10/16 12:15 Order name: NT PRO-BNP; Complete Time: 13: rn 10/16 12:15 Order name: Troponin (emerg Dept Use Only); Complete Time: 13:05 rn 10/16 12:15 Order name: Lipase; Complete Time: 13:05 rn 10/16 12:15 Order name: XRAY Chest (1 view); Complete Time: 13:50 rn 10/16 12:15 Order name: EKG; Complete Time: 12:15 rn 10/16 12:15 Order name: Cardiac monitoring; Complete Time: 12:26 rn 10/16 12:15 Order name: EKG - Nurse/Tech; Complete Time: 12: rn 10/16 12:15 Order name: IV Saline Lock; Complete Time: 12: rn 10/16 12:15 Order name: Labs collected and sent; Complete Time: 12:26 rn 10/16 12:15 Order name: O2 Per Protocol; Complete Time: 12: rn 10/16 16:24 Order name: Troponin I iw 10/16 12:15 Order name: O2 Sat Monitoring; Complete Time: 12:26 rn EC:06 Rate is 92 beats/min. Rhythm is regular. QRS [place] is Normal. [place] interval is normal. QRS rn interval is normal. QT interval is normal. No Q waves. T waves are Normal. No ST changes noted. Clinical impression: NSR w/ Non-specific ST/T Changes. Interpreted by me. Administered Medications: No medications were administered Disposition: 10/16/18 14:18 Hospitalization ordered by Hans Yoo for Observation. Preliminary diagnosis are Chest pain, unspecified, Dyspnea, unspecified. - Bed requested for Telemetry/MedSurg (observation). - Status is Observation. iw - Condition is Stable. - Problem is an ongoing problem. - Symptoms have improved. UTI on Admission? No Signatures: Dispatcher [employer] EDMS Anju Louie RN RN dw Soo Lobo RN RN iw Rodolfo Busby MD MD human resources intern: (The following items were deleted from the chart) 15:22 14:18 Hospitalization Ordered by Hans Yoo MD for Observation. Preliminary diagnosis dw is Chest pain, unspecified; Dyspnea, unspecified. Bed requested for Telemetry/MedSurg (observation). Status is Observation. Condition is Stable. Problem is an ongoing problem. Symptoms have improved. UTI on Admission? No. rn 16:40 15:22 10/16/2018 14:18 Hospitalization Ordered by Hans Yoo MD for Observation. iw Preliminary diagnosis is Chest pain, unspecified; Dyspnea, unspecified. Bed requested for Telemetry/MedSurg (observation). Status is Observation. Condition is Stable. Problem is an ongoing problem. Symptoms have improved. UTI on Admission? No. dw
[2018-10-16] MEDS ORDERED: ONDANSETRON 4 MG/2 ML VIAL IV PRN (16:53)
[2018-10-16 16:56] VITALS: BMI 18.8
--- NOTE | 2018-10-16 17:14 | EKG ---
Test Date: 2018-10-16 Test Time: 12:15:19 Shake Backboard Notcher: DOMINICK MEASUREMENT RESULTS: Intervals: Rate: 92 MT: 178 QRSD: 70 QT: 336 QTc: 415 [place]: P: 82 MT: 178 QRS: 65 T: 64 INTERPRETIVE STATEMENTS: Normal sinus rhythm Nonspecific ST abnormality Abnormal ECG Compared to ECG 10/07/2018 10:00:02 ST (T wave) deviation now present Atrial premature complex(es) no longer present Electronically Signed On 10-16-18 17:13:22 CDT by Gerardo Johnson
[2018-10-16] MEDS ORDERED: ZOLPIDEM TARTRATE 5 MG TABLET PO PRN (17:52)
--- NOTE | 2018-10-16 18:29 | P.SSS ---
Patient History Date of Service: 10/17/18 Reason for admission: PALPITATIONS AND DIZZY WHEN SHE STANDS UP History of Present Illness: MS. DUMONT HAS HAD YEARS OF ISSUES WITH THIS SYMPTOMS,. INITIALLY SHE DID WELL WITH TOPROL 12.5 MG DAILY AND LATER OVER YEARS RAISED TO 25 MG PO BID BUT LATER SHE STARTED TO HAVE SE OF IT WITH DIZZINESS, BP DROP, DIARRHEA AND SHE ALWAYS HAS ANXIETY ALL HER LIFE. DR. LUU STOPPED-TAPERED OFF TOPROL AND TRIED CARDIZEM BUT SHE COULD NOT SLEEP. I MAY HAVE TRIED DIGOXIN YEARS AGO. SHE HAS FAILED ALL ANXIETY MEDS LIKE SSRIS AND HAS SE OF BENZODIAZEPINS IN PAST. NOW SHE IS TO ER , THINKS SHE IS DYING. Allergies Benzodiazepines Allergy (Verified 03/17/15 15:59) Nausea/Vomiting Bisphosphonates Allergy (Verified 03/17/15 17:09) Nausea/Vomiting buspirone HCl [From BuSpar] Allergy (Verified 03/17/15 17:09) Nausea/Vomiting codeine Allergy (Verified 03/17/15 16:01) Nausea/Vomiting escitalopram oxalate [From Lexapro] Allergy (Verified 03/17/15 17:09) Nausea/Vomiting mirtazapine [From Remeron] Allergy (Verified 03/17/15 17:09) Nausea/Vomiting morphine Allergy (Verified 03/17/15 16:01) Nausea/Vomiting nortriptyline HCl [From Pamelor] Allergy (Verified 03/17/15 17:09) Nausea/Vomiting raloxifene HCl [From Evista] Allergy (Verified 03/17/15 16:01) Nausea/Vomiting risedronate sodium [From Actonel] Allergy (Verified 03/17/15 16:01) Nausea/Vomiting teriparatide [From Forteo] Allergy (Verified 03/17/15 17:09) Nausea/Vomiting Home Medications: Aspirin Chewable [Aspirin Chewable*] 162.5 mg PO DAILY 03/17/15 Hydrocortisone Acetate 25 mg RC PRN PRN 03/17/15 Cholecalciferol (Vitamin D3) [Vitamin D3] 1 tab PO DAILY 10/16/18 Cyanocobalamin (Vitamin B-12) [Vitamin B12] 500 mcg PO DAILY 10/16/18 Levomefolate/Algal Oil [Deplin-Algal Oil 15 mg Capsule] 7.5 mg PO BID 10/16/18 - Past Medical/Surgical History Has patient received pneumonia vaccine in the past: Yes Diabetic: No -: IBS -: irreg hr -: anxiety -: cataracts -: Hysterectomy -: Removal of Esteban's Neuroma-right foot -: cataracts - Family History Father -: Heart disease, Kidney disease Mother -: Heart disease - Social History Smoking Status: Never smoker Alcohol use: No CD- Drugs: No Caffeine use: No Place of Residence: Home Review of Systems 10-point ROS is otherwise unremarkable General: Weakness, As per HPI Physical Examination - Vital Signs Temperature: 97.8 F Blood Pressure: 169/77 Pulse: 79 Respirations: 16 Pulse Ox (%): 98 - Physical Exam General: Alert, Mild distress, Moderate distress, Other (WORRIED FACIAL EXPRESSIONS.) HEENT: Atraumatic, PERRLA, Mucous membr. moist/pink, EOMI, Sclerae nonicteric Neck: Supple, 2+ carotid pulse no bruit, No LAD, Without JVD or thyroid abnormality Respiratory: Clear to auscultation bilaterally, Normal air movement Cardiovascular: Regular rate/rhythm, Normal S1 S2 Gastrointestinal: Normal bowel sounds, No tenderness Musculoskeletal: No tenderness Integumentary: No rashes Neurological: Normal gait, Normal speech, Normal strength at 5/5 x4 extr, Normal tone, Normal affect Lymphatics: No axilla or inguinal lymphadenopathy - Studies Laboratory Data (last 24 hrs) 10/16/18 12:20: WBC 6.5, Hgb 13.0, Hct 39.9, Plt Count 430 H 10/16/18 12:20: Sodium 138, Potassium 3.5, BUN 8, Creatinine 0.77, Glucose 117 H , Total Bilirubin 0.7, AST 22, ALT 21, Alkaline Phosphatase 77, Lipase 208 - Diagnosis (Problem(s)) (1) POTS (postural orthostatic tachycardia syndrome) Current Visit: Yes Status: Chronic Plan: MOST LIKELY SHE WILL HAVE NORMAL STRESS TEST. ORDER ACTH STIM. TEST. SHE MOST LIKELY HAS POTS- POSTURAL ORTHOSTATIS HYPOTENSION SYNDROME. SHE DID NOT TOLERATE TOPROL ONLY AFTER 4 YEARS OF BEING ON IT. IT WORKED GREAT BEFORE. TOPROL CROSSES BBB. I WILL TRY COREG IN A SMALL DOSE IT IS ALPHA AND B COCO BOTH. IF NOT WILL TRY BISOPROLOL IN A SMALL DOSE. SHE HAS FAILED ALL ANXIETY MEDS BEFORE. SHE DOES NOT TOLERATE MOST MEDS. (2) Severe anxiety Current Visit: Yes Status: Chronic Plan: SHE IS VERY ANXIOUS AND HAS FAILED MULTIPLE MEDS I HAVE GIVEN HER, THESE INCLUDE BENZODIAZEPINES, SSRIS ETC. I WILL GIVE HER TRIAL OF REMERON 7.5 MG QHS TO SEE IF IT HELPS. I HAVE TRIED COREG WITH NO HELP THIS TIME ALSO. - Disposition Disposition: ROUTINE DISCHARGE
[2018-10-16 18:36] LABS: T3 Free 2.59 pg/mL (2.18-3.98); Thyroid Stimulating Hormone 1.26 uIU/mL (0.360-3.740)
[2018-10-16] MEDS: CARVEDILOL 3.125 MG TAB PO SCH (19:45)
--- NOTE | 2018-10-16 23:18 | CON ---
History Of Present Illness: Mrs. Damian is an 83-year-old. She has been on beta-blockers for pauline te some time and then was taken off because they were making her feel fatigued and bad in many ways, given her bad dreams and since she has been off, she has had a lot of trouble with her heart racing. An attempt was made to put her on at least 1 other medicine. I think it was Cardizem and we cannot quite be sure. She does not remember the names of her medicines and gives a bit of a confusing histo ry, but that seem to make her feel worse. Mrs. Damian is a woman, who has not had severe heart di sease in the past. We have not seen atrial fibrillation or congestive heart failure or coronary hear t disease in her. She has some chest pain as well. She does not use tobacco. No illegal drugs. Al cohol use minimal. Outpatient Medications: Aspirin, hydrocortisone, acetate, suppository, cholecalciferol, , and cyanocobalamin. I believe she has some kind of inflammatory disease of the intestine. Allergies: SHE REPORTS DRUG ALLERGIES TO BENZODIAZEPINE, BISPHOSPHONATES, BUSPIRONE, CODEINE. WE DO NOT HAVE THE COMPLETE LIST OF HER ALLERGIES. Physical Examination: General: She is alert, oriented, pleasant, not in distress, anxious, upset. HEENT: Normal. Lungs: Clear. Heart: 118. Abdomen: Soft. Extremities: Normal. No cyanosis, clubbing, or edema. Distal pulses normal. Laboratory Data: Reveals normal hemoglobin, hematocrit. Normal cardiac enzymes. Normal BUN, creati nine. Blood sugars 117 random. We do not have a TSH. Impression: We should check a TSH. Do a nuclear stress test and try to see if that would slow her sinus heart rate down. She has sinus rhythm. Beta-blockers and calcium blockers have fail ed to get any relief from her symptoms. SH/MODL Voice ID: [id number] Report ID: [id number]
[2018-10-17] MEDS: CARVEDILOL 3.125 MG TAB PO SCH ×3 (06:00→18:27)
[2018-10-17 06:11] LABS: Absolute Lymphocytes (CBC) 1.5 K/uL (0.7-4.9); Absolute Monocytes 0.4 K/uL (0.1-1.3); Absolute Neutrophil 3.1 K/uL (1.8-8.0); Basophils % 0.6 % (0-1.3); Eosinophils % 1.2 % (0-4.4); Hematocrit 40.5 % (36.0-45.0); Lymphocytes % 29.2 % (15.3-44.8); MPV 7.1 fL (7.6-11.3); Monocytes % 8.4 % (3.3-12.3); RBC Red Blood Cell Count 4.47 M/uL (3.86-4.86)
[2018-10-17 06:23] LABS: Potassium 4.1 mmol/L (3.5-5.1)
[2018-10-17] MEDS ORDERED: SODIUM CHLORIDE 0.9% 10ML INJ IV ONE (07:30)
[2018-10-17] MEDS ORDERED: COSYNTROPIN 0.25 MG VIAL IV ONE (07:30)
[2018-10-17] MEDS ORDERED: REGADENOSON 0.4 MG/5 ML SYR IV ONE (08:17)
[2018-10-17] MEDS: ASPIRIN EC 81 MG TAB PO SCH ×2 (09:00→12:48)
--- NOTE | 2018-10-17 11:48 | RAD REPORT ---
EXAM DESCRIPTION: NM - Rest Stress Cardiac Imaging - 10/17/2018 11:30 am CLINICAL HISTORY: Chest pain COMPARISON: None. TECHNIQUE: The patient was administered approximately 10 mCi of Tc 99m Sestamibi prior to resting SP ECT imaging of the heart. The patient was then administered approximately 30 mCi of Tc 99m Sestamibi following exercise or pharmacologic stress. Multiplanar SPECT images were reviewed. FINDINGS: The end diastolic volume is 35 ml, the end systolic volume is 8 ml, and the ejection fract ion is 70 %. Physiologic distribution of the radiopharmaceutical through the myocardium is noted. No stress induce d ischemic defect is seen to suggest stress induced ischemia. No fixed defect is seen to suggest hibe rnating myocardium or scarred myocardium. IMPRESSION: No stress induced ischemia or other suspicious findings.
[2018-10-17] MEDS ORDERED: FOLIC ACID 1 MG, MULTIVITAMINS INJ 10 ML, THIAMINE HCL 100 MG in NA CHLORIDE 0.9% 1,000 ML IV ONE (15:00)
[2018-10-17] MEDS ORDERED: hydrOXYzine HCl 25 MG TAB PO PRN (16:00)
--- NOTE | 2018-10-17 17:09 | P.PN ---
Subjective Date of Service: 10/17/18 Chief Complaint: VERY ANXIOUS ABOUT ANY SYMTPOMS. Subjective: No new changes SHE IS WORRIED ABOUT NOT HAVING BM NOW, SHE HAS HAD IBS BEFORE. SHE HAS NOT BEEN ABLE TOTAKE ANY ANXIETY MEDS. Review of Systems 10-point ROS is otherwise unremarkable Physical Examination - Vital Signs Temperature: 97.8 F Blood Pressure: 169/77 Pulse: 79 Respirations: 16 Pulse Ox (%): 98 - Physical Exam General: Alert, Cachectic, Moderate distress HEENT: Atraumatic, PERRLA, EOMI Neck: Supple, JVD not distended Respiratory: Clear to auscultation bilaterally, Normal air movement Cardiovascular: Regular rate/rhythm, Normal S1 S2 Gastrointestinal: Normal bowel sounds, No tenderness Musculoskeletal: No tenderness Integumentary: No rashes Neurological: Normal speech, Normal tone, Normal affect Lymphatics: No axilla or inguinal lymphadenopathy - Studies Medications List Reviewed: Yes Assessment And Plan - Current Problems (Diagnosis) (1) POTS (postural orthostatic tachycardia syndrome) Current Visit: Yes Status: Chronic Plan: MOST LIKELY SHE WILL HAVE NORMAL STRESS TEST. ORDER ACTH STIM. TEST. SHE MOST LIKELY HAS POTS- POSTURAL ORTHOSTATIS HYPOTENSION SYNDROME. SHE DID NOT TOLERATE TOPROL ONLY AFTER 4 YEARS OF BEING ON IT. IT WORKED GREAT BEFORE. TOPROL CROSSES BBB. I WILL TRY COREG IN A SMALL DOSE IT IS ALPHA AND B COCO BOTH. IF NOT WILL TRY BISOPROLOL IN A SMALL DOSE. SHE HAS FAILED ALL ANXIETY MEDS BEFORE. SHE DOES NOT TOLERATE MOST MEDS. (2) Severe anxiety Current Visit: Yes Status: Chronic Plan: SHE IS VERY ANXIOUS AND HAS FAILED MULTIPLE MEDS I HAVE GI DANN HER, THESE INCLUDE BENZODIAZEPINES, SSRIS ETC. I WILL GIVE HER TRIAL OF REMERON 7.5 MG QHS TO SEE IF IT HELPS. I HAVE TRIED COREG WITH NO HELP THIS TIME ALSO. SHE IS STABLE BUT STILL VERY ANXIOUS. WILL SEE HOW ABOVE MEDS WORK.
[2018-10-17] MEDS: MIRTAZAPINE 15 MG TAB PO SCH ×2 (20:18→20:21)
[2018-10-17 21:51] LABS: Urine Appearance CLEAR; Urine Bilirubin NEGATIVE (NEG); Urine Blood NEGATIVE (NEG); Urine Color YELLOW; Urine Glucose TRACE (NEG); Urine Protein NEGATIVE (NEG); Urine Specific Gravity <=1.005 (1.005-1.030); Urine Urobilinogen 0.2 mg/dL (0.2-1.0); Urine pH 6.5 (5.0-7.0)
[2018-10-17 21:59] LABS: Urine Bacteria NONE SEEN /HPF (<20); Urine Culture Reflex Order NOT NEEDED; Urine RBC <5 /HPF (NONE SEEN)
[2018-10-18] MEDS: CARVEDILOL 3.125 MG TAB PO SCH (05:56)
[2018-10-18] MEDS: ASPIRIN EC 81 MG TAB PO SCH (09:00)
[2018-10-18 09:06] VITALS: BP 114/71; TEMP 97.7
--- NOTE | 2018-10-18 09:48 | EKG ---
Test Date: 2018-10-17 Test Time: 07:27:11 Indirect Sales Representative: GASTON MEASUREMENT RESULTS: Intervals: Rate: 72 HI: 168 QRSD: 80 QT: 376 QTc: 411 Cook: P: 73 HI: 168 QRS: 31 T: 39 INTERPRETIVE STATEMENTS: Normal sinus rhythm Nonspecific ST abnormality Abnormal ECG Compared to ECG 10/16/2018 12:15:19 No significant changes Electronically Signed On 10-18-18 09:43:23 CDT by Reji Bryant
--- NOTE | 2018-10-18 10:59 | P.DS ---
Admission Date: 10/16/18 Discharge Date: 10/18/18 Disposition: ROUTINE DISCHARGE Discharge Condition: FAIR Reason for Admission: VERY ANXIOUS ABOUT ANY SYMTPOMS. - Problems (1) POTS (postural orthostatic tachycardia syndrome) Current Visit: Yes Status: Chronic (2) Severe anxiety Current Visit: Yes Status: Chronic Brief History of Present Illness: MS. DUMONT HAS HAD YEARS OF ISSUES WITH THIS SYMPTOMS,. INITIALLY SHE DID WELL WITH TOPROL 12.5 MG DAILY AND LATER OVER YEARS RAISED TO 25 MG PO BID BUT LATER SHE STARTED TO HAVE SE OF IT WITH DIZZINESS, BP DROP, DIARRHEA AND SHE ALWAYS HAS ANXIETY ALL HER LIFE. DR. LUU STOPPED-TAPERED OFF TOPROL AND TRIED CARDIZEM BUT SHE COULD NOT SLEEP. I MAY HAVE TRIED DIGOXIN YEARS AGO. SHE HAS FAILED ALL ANXIETY MEDS LIKE SSRIS AND HAS SE OF BENZODIAZEPINS IN PAST. NOW SHE IS TO ER , THINKS SHE IS DYING. MRS. SHAFER HAS DONE WELL WITH SMALL DOSE OF ATARAX FOR ANXIETY. TODAY SHE IS STANDING AND TALKING WELL WITHOUT TRYING TO FALL OR PASS OUT. SHE IS STABLE TO GO HOME. HER ACTH TEST IS NEGATIVE, ST TEST IS NEGATIVE. Vital Signs/Physical Exam: Temp Pulse Resp BP Pulse Ox 97.7 F 70 15 114/71 99 10/18/18 08:00 10/18/18 08:00 10/18/18 08:00 10/18/18 08:00 10/18/18 08:00 Laboratory Data at Discharge: WBC 5.2 K/uL (4.3-10.9) D 10/17/18 05:48 Hgb 13.4 g/dL (12.0-15.0) 10/17/18 05:48 Hct 40.5 % (36.0-45.0) 10/17/18 05:48 Plt Count 371 K/uL (152-406) 10/17/18 05:48 Sodium 141 mmol/L (136-145) 10/17/18 05:48 Potassium 4.1 mmol/L (3.5-5.1) 10/17/18 05:48 BUN 9 mg/dL (7-18) 10/17/18 05:48 Creatinine 0.81 mg/dL (0.55-1.3) 10/17/18 05:48 Glucose 95 mg/dL (74-106) 10/17/18 05:48 Total Bilirubin 0.7 mg/dL (0.2-1.0) 10/16/18 12:20 AST 22 U/L (15-37) 10/16/18 12:20 ALT 21 U/L (12-78) 10/16/18 12:20 Alkaline Phosphatase 77 U/L (45-117) 10/16/18 12:20 Troponin I < 0.02 ng/mL (0.0-0.045) 10/16/18 21:02 Lipase 208 U/L (73-393) 10/16/18 12:20 Home Medications: Aspirin Chewable [Aspirin Chewable*] 162.5 mg PO DAILY 03/17/15 Hydrocortisone Acetate 25 mg RC PRN PRN 03/17/15 Cholecalciferol (Vitamin D3) [Vitamin D3] 1 tab PO DAILY 10/16/18 Cyanocobalamin (Vitamin B-12) [Vitamin B12] 500 mcg PO DAILY 10/16/18 Levomefolate/Algal Oil [Deplin-Algal Oil 15 mg Capsule] 7.5 mg PO BID 10/16/18 Carvedilol 3.125 mg PO BID #60 tablet 10/18/18 Hydroxyzine HCl [Atarax] 10 mg PO BID #60 tablet 10/18/18 New Medications: Carvedilol 3.125 mg PO BID #60 tablet Hydroxyzine HCl [Atarax] 10 mg PO BID #60 tablet Diet: Regular Followup: Hans Yoo MD [Primary Care Provider] - (call to schedule follow up appointment)
[2018-10-18 11:37] VITALS: O2SAT 99
[2018-10-18] MEDS ORDERED: FOLIC ACID 1 MG, MULTIVITAMINS INJ 10 ML, THIAMINE HCL 100 MG in NA CHLORIDE 0.9% 1,000 ML IV ONE (15:00)
--- NOTE | 2018-10-20 08:26 | TREADPHA ---
DX: CHEST PAIN Date of Study: 10/17/2018 Ht: 5 2 Wt: 103 lb 0 oz Consulting Physician: JUS MEDICATIONS: ASPIRIN, COREG, ZOFRAN, AMBEIN HISTORY: 83 YEAR OLD FEMALE WITH COMPLAINTS OF CHEST PAIN. MEDICAL HISTORY OF TACHYCARDIA. PHYSICIAL EXAMINATION: RESTING B.P.: 135/83 RESTING H.R.: 75 RESTING EKG: NORMAL PROTOCOL: LEXISCAN EXERCISE TIME: 3:30 B.P. AT PEAK STRESS: 147/91 IMPRESSION: LEXISCAN INJECTED. CARDIOLITE INJECTED PER PROTOCOL. SEE NUCLEAR MEDICINE REPORT. NO SUPRAVENTRICULAR TACHYCARDIA. NO VENTRICULAR TACHYCARDIA. FREQUENT PREMATURE VENTRICULAR COMPLEXES THROUGHOUT TEST. TACHYCARDIA 130S THROUGHOUT TEST.
--- NOTE | 2018-10-20 08:29 | ECHO ---
HEIGHT: 5 ft 2 in WEIGHT: 103 lb 0 oz DATE OF STUDY: 10/17/[address]: Gerardo Johnson MD 2-DIMENSIONAL: YES M.MODE: YES DOPPLER: YES COLOR FLOW: YES TDS: NO PORTABLE: NO DEFINITY: NO BUBBLE STUDY: NO DIAGNOSIS: TACHYCARDIA CARDIAC HISTORY: CATHERIZATION: NO SURGERY: NO PROSTHETIC VALVE: NO PACEMAKER: NO MEASUREMENTS (cm) DIASTOLIC (NORMALS) SYSTOLIC (NORMALS) IVSd 0.9 (0.6-1.2) LA Diam 2.6 (1.9-4.0) LVEF 54% LVIDd 3.5 (3.5-5.7) LVIDs 2.6 (2.0-3.5) %FS 27% LVPWd 1.0 (0.6-1.2) Ao Diam 2.8 (2.0-3.7) 2 DIMENSIONAL ASSESSMENT: RIGHT ATRIUM: NORMAL LEFT ATRIUM: NORMAL RIGHT VENTRICLE: NORMAL LEFT VENTRICLE: NORMAL TRICUSPID VALVE: NORMAL MITRAL VALVE: NORMAL PULMONIC VALVE: NORMAL AORTIC VALVE: NORMAL PERICARDIAL EFFUSION: NONE AORTIC ROOT: NORMAL LEFT VENTRICULAR WALL MOTION: NORMAL DOPPLER/COLOR FLOW: MILD TRICUSPID REGURGITATION. COMMENTS: MILD TRICUSPID REGURGITATION. NORMAL LEFT VENTRICULAR SIZE AND FUNCTION. NO WALL MOTION ABNORMALITY. NO MITRAL VALVE PROLAPSE. TECHNOLOGIST: Stanley MAYFIELD
== END 2018-10-18 12:01 | disposition home or self-care (01) ==
LOC: ER 12:08 → ERHOLD 14:20 → 4TH 16:25
PROVIDERS: ADMIT Internal Medicine; ATTEND Internal Medicine
DX: I49.8 Other specified cardiac arrhythmias (principal); F41.9 Anxiety disorder, unspecified; Z79.82 Long term (current) use of aspirin
CPT/HCPCS: 93005 ×2; 93017; 93306; 85025 ×2; 81001; 80048 ×2; 36415 ×2; 82962; 80076; 84443; 84484 ×4; 84481; 84439; 83690; 82533 ×4; 82024; 83880; 71045; 97161; 78452; 99285; J0834; J3411; J2785; J7030; A9500; G0378 ×2

== ENCOUNTER 2019-03-20 15:21 | Emergency (ER) | payer OTHER ==
--- OUTSIDE RECORDS SUMMARY | 2019-03-20 15:23 | XMS REPORT ---
:1935 [facility] [address] [place] [id number] Care Team Providers Name Role Phone Unavailable Unavailable Unavailable Problems This patient has no known problems. Allergies, Adverse Reactions, Alerts This patient has no known allergies or adverse reactions. Medications This patient has no known medications.
[2019-03-20] MEDS ORDERED: NA CHLORIDE 0.9% 500 ML ONE (16:12)
[2019-03-20 16:39] LABS: Absolute Lymphocytes (CBC) 1.4 K/uL (0.7-4.9); Basophils % 0.5 % (0-1.3); Hematocrit 37.7 % (36.0-45.0); MPV 7.5 fL (7.6-11.3); RBC Red Blood Cell Count 4.13 M/uL (3.86-4.86)
--- NOTE | 2019-03-20 16:52 | RAD REPORT ---
EXAM DESCRIPTION: RAD - Chest Single View - 03/20/2019 4:33 pm CLINICAL HISTORY: Chest pain;Palpitations Chest pain. COMPARISON: Chest Single View dated 10/16/2018; Chest Single View dated 10/07/2018; CHEST PA AND LAT 2 VIEW dated 03/17/2015; CHEST SINGLE VIEW dated 03/05/2014 FINDINGS: Portable technique limits examination quality. The lungs are emphysematous but grossly clear. The heart is normal in size. No displaced fractures. IMPRESSION: No acute intrathoracic process suspected. Mild COPD.
[2019-03-20 16:59] LABS: BUN Blood Urea Nitrogen 12 mg/dL (7-18); Bicarbonate 29 mmol/L (21-32); Glucose Level 119 mg/dL (74-106); Potassium 3.9 mmol/L (3.5-5.1); Sodium Level 139 mmol/L (136-145); Troponin (Emerg Dept Use Only) < 0.02 ng/mL (0.0-0.045)
[2019-03-20] MEDS ORDERED: MAGNE/ALUM HYDROXD 30 ML UCUP ONE (17:19)
[2019-03-20] MEDS ORDERED: LIDOCAINE VISCOUS 2% SOLN 15 ML UDC ONE (17:19)
--- NOTE | 2019-03-20 18:31 | ER ---
Nurse's Notes [facility] Name: Mary Damian Age: 83 yrs Sex: Female : 1935 Arrival Date: 03/20/2019 Time: 15:22 Bed 17 Private MD: Hans Yoo V Diagnosis: Palpitations Presentation: 03/20 15:26 Presenting complaint: Chest pain and nausea x 2-3 days, HR 90s-100s today. Transition hb of care: patient was not received from another setting of care. Onset of symptoms was March 18, 2019. Risk Assessment: Do you want to hurt yourself or someone else? Patient reports no desire to harm self or others. Initial Sepsis Screen: Does the patient meet any 2 criteria? No. Patient's initial sepsis screen is negative. Does the patient have a suspected source of infection? No. Patient's initial sepsis screen is negative. Care prior to arrival: None. 15:26 Method Of Arrival: Ambulatory hb 15:26 Acuity: NICOLAS 3 hb Historical: - Allergies: 15:30 Actonel; hb 15:30 BENZODIAZEPINES; ( Ativan, Lorazepam, Librax); hb 15:30 Codeine; hb 15:30 Evista; hb 15:30 Librax; hb 15:30 Morphine; hb 15:30 Pure Vitamins; hb - PMHx: 15:30 Irregular heart rate; Irritable bowel syndrome; hb - Immunization history:: Adult Immunizations up to date. - Social history:: Smoking status: Patient/guardian denies using tobacco. - Ebola Screening: : No symptoms or risks identified at this time. - Family history:: not pertinent. - Hospitalizations: : No recent hospitalization is reported. Screenin:35 Abuse screen: Denies threats or abuse. Denies injuries from another. Nutritional sg screening: No deficits noted. Tuberculosis screening: No symptoms or risk factors identified. Never had TB. Fall Risk None identified. Assessment: 16:35 Reassessment: Patient appears in no apparent distress at this time. General: Appears in sg no apparent distress. well groomed, well developed, well nourished, Behavior is calm, cooperative, appropriate for age. 16:35 Pain: Complains of pain in diaphragm and xyphoid area Quality of pain is described as sg burning. Neuro: Level of Consciousness is awake, alert, obeys commands, Oriented to person, place, time, Director Of Training are equal bilaterally Moves all extremities. Full function Gait is steady, Speech is normal, Facial symmetry appears normal, Pupils are PERRLA. Cardiovascular: Reports palpitations, Heart tones S1 S2 present Capillary refill is brisk in bilateral fingers Patient's skin is warm and dry. Chest pain is denied. Respiratory: Airway is patent Respiratory effort is even, unlabored, Respiratory pattern is regular, symmetrical. GI: Abdomen is round non-distended, Reports normal bowel habits, tolerance of fluids, tolerance of food. : No signs and/or symptoms were reported regarding the genitourinary system. EENT: No signs and/or symptoms were reported regarding the EENT system. Derm: Skin is pink, warm \T\ dry. Musculoskeletal: Circulation, motion, and sensation intact. Range of motion: intact in all extremities. Vital Signs: 15:29 BP 178 / 98; Pulse 102; Resp 16; Temp 99.2; Pulse Ox 100% on R/A; Weight 46.27 kg; hb Height 5 ft. 2 in. (157.48 cm); Pain 4/10; 15:53 BP 163 / 82; Pulse 79; Resp 17; Pulse Ox 100% on R/A; sg 16:34 BP 160 / 77; Pulse 73; Resp 12; Pulse Ox 96% on R/A; mh5 16:41 BP 160 / 77; Pulse 72; Resp 17; Temp 97.6(TE); Pulse Ox 98% on R/A; mh5 15:29 Body Mass Index 18.66 (46.27 kg, 157.48 cm) ED Course: 15:22 Patient arrived in ED. rg4 15:23 Hans Yoo MD is Private Physician. rg4 15:29 Triage completed. hb 15:29 Arm band placed on. hb 15:30 Pranay Marie, TAMIKO is Primary Nurse. sg 15:38 Patient has correct armband on for positive identification. Placed in gown. Bed in low mh5 position. Call light in reach. Side rails up X2. Adult w/ patient. Warm blanket given. shelter monitor on. Pulse ox on. NIBP on. 15:39 EKG done, by tree and shrub technician. reviewed by Rodolfo Busby MD. 3 15:45 Rodolfo Busby MD is Attending Physician. rn 16:34 XRAY Chest (1 view) In Process Unspecified. EDMS 16:45 Initial lab(s) drawn, by me, sent to lab. Inserted saline lock: 22 gauge in left sg forearm, using aseptic technique. Blood collected. 18:34 Urine Microscopic Only Sent. mh5 Administered Medications: 16:52 Drug: NS 0.9% 500 ml Route: IV; Rate: bolus; Site: left forearm; sg 17:23 Drug: GI Cocktail without - (Maalox Suspension 30 ml, Lidocaine Liquid 2 % 15 sg ml) Route: PO; Output: 18:31 Urine: 250ml (Voided); Total: 250ml. aa5 Outcome: 18:30 Discharge ordered by . rn 19:22 Patient left the ED. jb4 Signatures: Dispatcher [employer] EDMS Pranay Marie, RN RN Rodolfo Sanchez MD MD rn Calderon, Audri, RN RN 5 Marycruz Krishna, RN Debbie Ndiaye Zeke Camp RN RN [facility] Ursula Fields [facility] Raina Hoskins 3
--- NOTE | 2019-03-20 18:31 | EDPHYS ---
Physician Documentation [facility] Name: Mary Damian Age: 83 yrs Sex: Female : 1935 Arrival Date: 03/20/2019 Time: 15:22 Bed 17 Private MD: Hans Yoo V ED Physician Rodolfo Busby HPI: 03/20 17:57 This 83 yrs old Female presents to ER via Ambulatory with complaints of rn Palpitations. 17:57 The patient presents with a history of heart racing. Onset: The symptoms/episode rn began/occurred 5 month(s) ago. Modifying factors: The symptoms are aggravated by light activity, The symptoms are alleviated by nothing. Severity of symptoms: At their worst the symptoms were moderate in the emergency department the symptoms have improved. The patient has experienced similar episodes in the past. Reports palpitations, feels like heart racing, has had difficulty controlling tachycardia since september, now on coreg and flecainide, sees cardiology in [place], reports heart feels racing when in 80s-90s, and when exerts herself gets to 120s. This has been happening formonths and is tired of it. No syncope. No gross changes. Taking meds as prescribed. Reports has heart rate problem but no clear diagnosis. . Historical: - Allergies: 15:30 Actonel; hb 15:30 BENZODIAZEPINES; ( Ativan, Lorazepam, Librax); hb 15:30 Codeine; hb 15:30 Evista; hb 15:30 Librax; hb 15:30 Morphine; hb 15:30 Pure Vitamins; hb - PMHx: 15:30 Irregular heart rate; Irritable bowel syndrome; hb - Immunization history:: Adult Immunizations up to date. - Social history:: Smoking status: Patient/guardian denies using tobacco. - Ebola Screening: : No symptoms or risks identified at this time. - Family history:: not pertinent. - Hospitalizations: : No recent hospitalization is reported. ROS: 17:57 Constitutional: Negative for fever, chills, and weight loss, Eyes: Negative for injury, rn pain, redness, and discharge, Neck: Negative for injury, pain, and swelling, Cardiovascular: Negative for edema Respiratory: Negative for shortness of breath, cough, wheezing, and pleuritic chest pain, Abdomen/GI: Negative for abdominal pain, nausea, vomiting, diarrhea, and constipation, MS/Extremity: Negative for injury and deformity, Skin: Negative for injury, rash, and discoloration, Neuro: Negative for headache, weakness, numbness, tingling, and seizure. Exam: 17:57 Constitutional: This is a well developed, well nourished patient who is awake, alert, rn appears anxious Head/Face: Normocephalic, atraumatic. Eyes: Pupils equal round and reactive to light, extra-ocular motions intact. Lids and lashes normal. Conjunctiva and sclera are non-icteric and not injected. Cornea within normal limits. Periorbital areas with no swelling, redness, or edema. ENT: MMM Cardiovascular: Regular rate and rhythm. No JVD. No pulse deficits. Respiratory: Lungs have equal breath sounds bilaterally, clear to auscultation. No increased work of breathing, no retractions or nasal flaring. Abdomen/GI: Soft, non-tender MS/ Extremity: Pulses equal, no cyanosis. Neurovascular intact. Full, normal range of motion. Equal circumference. Neuro: Awake and alert, GCS 15, oriented to person, place, time, and situation. Cranial nerves II-XII grossly intact. Motor strength 5/5 in all extremities. Sensory grossly intact. Vital Signs: 15:29 BP 178 / 98; Pulse 102; Resp 16; Temp 99.2; Pulse Ox 100% on R/A; Weight 46.27 kg; hb Height 5 ft. 2 in. (157.48 cm); Pain 4/10; 15:53 BP 163 / 82; Pulse 79; Resp 17; Pulse Ox 100% on R/A; sg 16:34 BP 160 / 77; Pulse 73; Resp 12; Pulse Ox 96% on R/A; mh5 16:41 BP 160 / 77; Pulse 72; Resp 17; Temp 97.6(TE); Pulse Ox 98% on R/A; mh5 15:29 Body Mass Index 18.66 (46.27 kg, 157.48 cm) hb MDM: 15:45 Patient medically screened. rn 17:57 Differential diagnosis: arrythmia, dehydration, stress disorder. Data reviewed: vital rn signs, nurses notes, lab test result(s), EKG, and as a result, I will discharge patient. Counseling: I had a detailed discussion with the patient and/or guardian regarding: the historical points, exam findings, and any diagnostic results supporting the discharge/admit diagnosis, lab results, radiology results, the need for outpatient follow up, to return to the emergency department if symptoms worsen or persist or if there are any questions or concerns that arise at home. ED course: Pt with normal sinus rhythm and HR< 80, no arrythmia on monitor. Previous ECGs on last 3 visits all show sinus rhythm. Will dc home as labs negative, with cardiology f/u. 03/20 16:04 Order name: CBC with Diff; Complete Time: 16:52 rn 03/20 16:04 Order name: Basic Metabolic Panel; Complete Time: 17:03 03/20 16:04 Order name: Troponin (emerg Dept Use Only); Complete Time: 17:03 03/20 16:04 Order name: XRAY Chest (1 view); Complete Time: 17:06 03/20 16:04 Order name: Urine Microscopic Only 03/20 18:31 Order name: Urine Dipstick--Ancillary (enter results) co 03/20 16:04 Order name: IV Start; Complete Time: 17:04 rn 03/20 16:04 Order name: EKG; Complete Time: 16:05 03/20 16:04 Order name: EKG - Nurse/Tech; Complete Time: 16:05 03/20 16:04 Order name: Urine Dipstick-Ancillary (obtain specimen); Complete Time: 18:31 rn Administered Medications: 16:52 Drug: NS 0.9% 500 ml Route: IV; Rate: bolus; Site: left forearm; sg 17:23 Drug: GI Cocktail without - (Maalox Suspension 30 ml, Lidocaine Liquid 2 % 15 sg ml) Route: PO; Disposition: 03/20/19 18:30 Discharged to Home. Impression: Palpitations. - Condition is Stable. - Discharge Instructions: Palpitations. - Medication Reconciliation Form, Thank You Letter, Antibiotic Education, Prescription Opioid Use form. - Follow up: Private Physician; When: As needed; Reason: Recheck today's complaints, Re-evaluation by your physician. - Problem is an ongoing problem. - Symptoms have improved. Signatures: Dispatcher [employer] EDMS Pranay Marie RN RN sg Nieto, Roman, MD MD rn Baxter, Heather, RN RN Zeke Zaidi RN RN jb4 Corrections: (The following items were deleted from the chart) 19:22 18:30 03/20/2019 18:30 Discharged to Home. Impression: Palpitations. Condition is jb4 Stable. Forms are Medication Reconciliation Form, Thank You Letter, Antibiotic Education, Prescription Opioid Use. Follow up: Private Physician; When: As needed; Reason: Recheck today's complaints, Re-evaluation by your physician. Problem is an ongoing problem. Symptoms have improved. rn
[2019-03-20 19:14] LABS: Urine Bacteria NONE SEEN /HPF (<20); Urine RBC <5 /HPF (NONE SEEN)
[2019-03-20 19:15] LABS: Urine Culture Reflex Order NOT NEEDED
[2019-03-20 19:15] LABS: Urine Blood NEGATIVE (NEG); Urine Glucose NEGATIVE (NEG); Urine Protein NEGATIVE (NEG); Urine pH 6.5 (5.0-7.0)
[2019-03-20 20:05] VITALS: BP 131/99; TEMP 97.5; O2SAT 100
--- NOTE | 2019-03-20 20:18 | EKG ---
Test Date: 2019-03-20 Test Time: 15:36:22 Boiler Coverer Helper: DOMINICK MEASUREMENT RESULTS: Intervals: Rate: 78 DE: 190 QRSD: 78 QT: 360 QTc: 410 Frederick: P: 57 DE: 190 QRS: 55 T: 67 INTERPRETIVE STATEMENTS: Normal sinus rhythm Nonspecific ST and T wave abnormality Abnormal ECG Compared to ECG 10/17/2018 07:27:11 No significant changes Electronically Signed On 03-20-19 20:18:13 CDT by Reji Bryant
== END 2019-03-20 19:22 | disposition home or self-care (01) ==
LOC: ER 15:21
DX: R00.2 Palpitations (principal); I49.9 Cardiac arrhythmia, unspecified; Z88.5 Allergy status to narcotic agent; Z88.8 Allergy status to other drugs, medicaments and biological substances; Z91.048 Other nonmedicinal substance allergy status
CPT/HCPCS: 36415; 71045; 80048; 81003; 81015; 84484; 85025; 93005; 99284

== ENCOUNTER 2020-02-02 15:28 | Emergency (ER) | payer OTHER ==
[2020-02-02] MEDS ORDERED: CODEINE 30MG/APAP 300MG TAB ONE (15:47)
--- OUTSIDE RECORDS SUMMARY | 2020-02-02 15:56 | XMS REPORT | Continuity of Care Document ---
:1935 Author Organization [facility] t Address [address] [place] [address] Dr. Cooper [address] [place] [id number] Care Team Providers Name Role Phone Unavailable Unavailable Unavailable Problems This patient has no known problems. Allergies, Adverse Reactions, Alerts This patient has no known allergies or adverse reactions. Medications This patient has no known medications. Procedures This patient has no known procedures. Results This patient has no known results.
--- NOTE | 2020-02-02 16:52 | RAD REPORT ---
EXAM DESCRIPTION: RAD - Knee Left 3 View - 02/02/2020 4:27 pm CLINICAL HISTORY: Left knee pain status post injury FINDINGS: No fracture or dislocation is seen. Osteoporosis If patient continues have symptoms to suggest an occult fracture, ligamentous or meniscal injury then MRI would be recommended
--- NOTE | 2020-02-02 16:53 | RAD REPORT ---
EXAM DESCRIPTION: RAD - Ankle Right 3 View - 02/02/2020 4:36 pm CLINICAL HISTORY: Right ankle pain status post fall FINDINGS: Nondisplaced fracture lateral malleolus Osteoporosis. Soft tissue swelling No dislocation
--- NOTE | 2020-02-02 17:44 | ER ---
Nurse's Notes [facility] Name: Mary Damian Age: 84 yrs Sex: Female : 1935 Arrival Date: 02/02/2020 Time: 15:30 Bed 24 Private MD: Diagnosis: Nondisplaced fracture of lateral malleolus of right fibula;Pain in left knee;Other slipping, tripping and stumbling and falls Presentation: 02/01 15:31 Chief complaint: EMS states: "Patient just returned from her doctor when she slipped in vc the parking lot, her upper half went to the right and the lower half went to the left. She did not hit her head, she has pain to right ankle and left knee.". Care prior to arrival: Ice packs placed to right ankle and left knee. Mechanism of Injury:. 15:31 Acuity: NICOLAS 3 vc 15:31 Method Of Arrival: EMS: [facility] vc 15:33 Coronavirus screen: Patient denies a cough. Patient denies shortness of breath or vc difficulty breathing. Patient denies measured and/or subjective temperature greater than 100.4F prior to today's visit. Patient denies travel on a cruise ship or to a country the [facility] currently lists as an affected area. Patient denies contact with known and/or suspected case of COVID-19. Proceed with normal triage. Patient instructed to continue to wear a mask when interacting with others. Patient moved to private room, placed in contact and droplet isolation with eye protection until further assessment. Ebola Screen: No symptoms or risks identified at this time. Initial Sepsis Screen: Does the patient meet any 2 criteria? No. Patient's initial sepsis screen is negative. Does the patient have a suspected source of infection? No. Patient's initial sepsis screen is negative. Risk Assessment: Do you want to hurt yourself or someone else? Patient reports no desire to harm self or others. Onset of symptoms was February 02, 2020 at 15:00. Historical: - Allergies: 15:38 Actonel; tw2 15:38 BENZODIAZEPINES; ( Ativan, Lorazepam, Librax); tw2 15:38 Codeine; tw2 15:38 Evista; tw2 15:38 Librax; tw2 15:38 Morphine; tw2 15:38 Pure Vitamins; tw2 15:38 "very sensitive to high dosage of any meds, have to start low dose and work up"; tw2 - Home Meds: 15:38 aspirin 325 mg Oral tab 0.5 tab when needed [Active]; bisoprolol fumarate 5 mg oral tab tw2 .25 tab once daily [Active]; clonazepam 0.5 mg Oral tab .25 tab daily [Active]; hydrocortisone acetate 25 mg Rectal supp 1 suppository when needed [Active]; - PMHx: 15:38 Irregular heart rate; Irritable bowel syndrome; tw2 - PSHx: 15:38 Hysterectomy; tw2 - Immunization history:: Adult Immunizations up to date, Last tetanus immunization: < 5 years ago Pneumococcal vaccine is up to date, Flu vaccine is up to date. - Social history:: Smoking status: Patient denies any tobacco usage or history of. Screenin:30 Abuse screen: Denies threats or abuse. Nutritional screening: No deficits noted. vc Tuberculosis screening: No symptoms or risk factors identified. Fall Risk Fall in past 12 months (25 points). No secondary diagnosis (0 pts). No IV (0 pts). Ambulatory Aid- None/Bed Rest/Nurse Assist (0 pts). Gait- Weak (10 pts.). Mental Status- Oriented to own ability (0 pts). Total Mann Fall Scale indicates Low Risk Score (25-44 pts). Fall prevention measures have been instituted. Side Rails Up X 2 Frequent Obs/Assesments occuring. Assessment: 15:30 General: Appears in no apparent distress. uncomfortable, slender, well groomed, vc Behavior is calm, cooperative, appropriate for age. Pain: Complains of pain in left knee and right ankle Pain does not radiate. Pain currently is 8 out of 10 on a pain scale. Quality of pain is described as sharp, throbbing, Pain began 30 min ago. Is continuous, Alleviated by cold application, Aggravated by repositioning, weight bearing. Neuro: Level of Consciousness is awake, alert, obeys commands, Oriented to person, place, time, situation, Appropriate for age. Cardiovascular: Capillary refill < 3 seconds Patient's skin is warm and dry. Respiratory: Airway is patent Respiratory effort is even, unlabored, Respiratory pattern is regular, symmetrical. GI: No signs and/or symptoms were reported involving the gastrointestinal system. : No signs and/or symptoms were reported regarding the genitourinary system. Derm: Bruising that is dark purple, on right ankle. Musculoskeletal: Range of motion: limited in left knee and right ankle. Injury Description: Bruise sustained to right ankle. 17:05 Reassessment: Patient appears in no apparent distress at this time. Patient and/or vc family updated on plan of care and expected duration. Pain level reassessed. Patient is alert, oriented x 3, equal unlabored respirations, skin warm/dry/pink. Vital Signs: 15:33 BP 172 / 82; Pulse 65; Resp 17; Temp 98(O); Pulse Ox 99% on R/A; Weight 47.17 kg; vc Height 5 ft. 2 in. (157.48 cm); 17:00 BP 152 / 80; Pulse 63; Resp 18; Pulse Ox 100% on R/A; vc 15:33 Body Mass Index 19.02 (47.17 kg, 157.48 cm) vc ED Course: 15:30 Patient arrived in ED. vc 15:30 Shawn Armstrong NP is PHCP. pm1 15:30 Bossman Rubio MD is Attending Physician. pm1 15:30 Arm band placed on. vc 15:30 Patient has correct armband on for positive identification. Bed in low position. Side vc rails up X2. Pulse ox on. NIBP on. 15:33 Triage completed. vc 15:52 Anaid Levi, RN is Primary Nurse. vc 16:27 Knee Left 3 View XRAY In Process Unspecified. EDMS 16:36 Ankle Right 3 View XRAY In Process Unspecified. EDMS Administered Medications: 15:40 Drug: Tylenol #3 (300 mg-30 mg) 0.5 tabs Route: PO; vc 15:41 CANCELLED (Duplicate Order): Tylenol #3 (300 mg-30 mg) 1 tablet PO once; RASS on ADMIN: tw2 Combtv4, Very Agttd3, Agttd2, Rstlss1, AlertClm0, Drwsy-1, Lt Sdtn-2, Mod Sdtn-3, Dp Sdtn-4, UnArsble-5 Outcome: 17:44 Discharge ordered by . pm1 18:25 Patient left the ED. vc Signatures: Dispatcher [employer] EDMS Shawn Armstrong NP AVIATION OPERATIONS SPECIALIST pm1 Moira Doe, RN RN tw2 Anaid Levi, RN RN vc Corrections: (The following items were deleted from the chart) 15:41 15:40 Tylenol #3 (300 mg-30 mg) 1 tablet PO vc tw2
--- NOTE | 2020-02-02 17:45 | EDPHYS ---
Physician Documentation [facility] Name: Mary Damian Age: 84 yrs Sex: Female : 1935 Arrival Date: 02/02/2020 Time: 15:30 Bed 24 Private MD: ED Physician Bossman Rubio HPI: 02/01 15:42 This 84 yrs old Female presents to ER via EMS with complaints of Fall Injury. pm1 15:42 Details of fall: The patient fell from an upright position, while walking. Onset: The pm1 symptoms/episode began/occurred just prior to arrival. Associated injuries: The patient sustained right ankle, swelling, Pain, left knee, Pain. The patient has not experienced similar symptoms in the past. The patient has been recently seen by a physician: with different complaint(s), Regular visit with production engineer, Dr Keane. Patient was walking outside in the rain returning to her home and she slipped on the water. Presenting with pain to right ankle and left knee. No headache, head injury, LOC, neck pain, or hip pain. Historical: - Allergies: 15:38 Actonel; tw2 15:38 BENZODIAZEPINES; ( Ativan, Lorazepam, Librax); tw2 15:38 Codeine; tw2 15:38 Evista; tw2 15:38 Librax; tw2 15:38 Morphine; tw2 15:38 Pure Vitamins; tw2 15:38 "very sensitive to high dosage of any meds, have to start low dose and work up"; tw2 - Home Meds: 15:38 aspirin 325 mg Oral tab 0.5 tab when needed [Active]; bisoprolol fumarate 5 mg oral tab tw2 .25 tab once daily [Active]; clonazepam 0.5 mg Oral tab .25 tab daily [Active]; hydrocortisone acetate 25 mg Rectal supp 1 suppository when needed [Active]; - PMHx: 15:38 Irregular heart rate; Irritable bowel syndrome; tw2 - PSHx: 15:38 Hysterectomy; tw2 - Immunization history:: Adult Immunizations up to date, Last tetanus immunization: < 5 years ago Pneumococcal vaccine is up to date, Flu vaccine is up to date. - Social history:: Smoking status: Patient denies any tobacco usage or history of. ROS: 15:42 Constitutional: Negative for fever, chills, and weight loss, Neck: Negative for injury, pm1 pain, and swelling, Cardiovascular: Negative for chest pain, palpitations, and edema, Respiratory: Negative for shortness of breath, cough, wheezing, and pleuritic chest pain, Abdomen/GI: Negative for abdominal pain, nausea, vomiting, diarrhea, and constipation, Back: Negative for injury and pain, Skin: Negative for injury, rash, and discoloration, Neuro: Negative for headache, weakness, numbness, tingling, and seizure. 15:42 MS/extremity: Positive for pain, of the left knee and right ankle, Negative for decreased range of motion, deformity. Exam: 15:42 Constitutional: This is a well developed, well nourished patient who is awake, alert, pm1 and in no acute distress. Head/Face: Normocephalic, atraumatic. Neck: Trachea midline, no thyromegaly or masses palpated, and no cervical lymphadenopathy. Supple, full range of motion without nuchal rigidity, or vertebral point tenderness. No Meningismus. Chest/axilla: Normal chest wall appearance and motion. Nontender with no deformity. No lesions are appreciated. 15:42 Back: No spinal tenderness. No costovertebral tenderness. Full range of motion. Skin: Warm, dry with normal turgor. Normal color with no rashes, no lesions, and no evidence of cellulitis. 15:42 Cardiovascular: Rate: normal, Rhythm: regular, Pulses: no pulse deficits are appreciated, Edema: is not appreciated. 15:42 Respiratory: Exam negative for acute changes, respiratory distress, shortness of breath. 15:42 Abdomen/GI: Exam negative for acute changes, Inspection: abdomen appears normal, Palpation: abdomen is soft and non-tender, in all quadrants. 15:42 Musculoskeletal/extremity: Extremities: grossly normal except: noted in the right ankle: swelling, tenderness, There is no evidence of abrasion, laceration, noted in the left knee: tenderness, no evidence of abrasion, laceration. 15:42 Neuro: Orientation: is normal, Mentation: is normal, Motor: moves all fours, Sensation: pm1 is normal, no obvious gross deficits. Vital Signs: 15:33 BP 172 / 82; Pulse 65; Resp 17; Temp 98(O); Pulse Ox 99% on R/A; Weight 47.17 kg; vc Height 5 ft. 2 in. (157.48 cm); 17:00 BP 152 / 80; Pulse 63; Resp 18; Pulse Ox 100% on R/A; vc 15:33 Body Mass Index 19.02 (47.17 kg, 157.48 cm) vc MDM: 15:30 Patient medically screened. pm1 17:20 ED course: Patient with left knee pain and hairline nondisplaced fracture to right pm1 lateral malleolus. [place] treatment would be Orthoglass splint to right ankle and knee immobilizer to left knee. However the patient would be a fall risk if those options were selected. Patient lives at assisted living so she needs mobility. Patient is able to bear weight with right ankle and left knee. Therefore to minimize fall risk I will seven wrap her left knee and give the patient a walking boot to right ankle. Explained this to the patient and she agrees with the plan. 17:42 ED course: Patient able to walk with walking boot and walker to the restroom. pm1 17:42 Data reviewed: vital signs. Data interpreted: Pulse oximetry: on room air is 100 %. pm1 Interpretation: normal. Counseling: I had a detailed discussion with the patient and/or guardian regarding: the historical points, exam findings, and any diagnostic results supporting the discharge/admit diagnosis, radiology results, the need for outpatient follow up, for definitive care, a orthopedic surgeon, to return to the emergency department if symptoms worsen or persist or if there are any questions or concerns that arise at home. 17:49 ED course: DE ICER KIT ASSEMBLER Aware reviewed. pm02/01 15:31 Order name: Knee Left 3 View XRAY; Complete Time: 17:13 pm02/01 15:31 Order name: Ankle Right 3 View XRAY; Complete Time: 17:13 pm02/01 17:20 Order name: Walking boot; Complete Time: 17:57 pm02/01 17:20 Order name: Misc. Order: Walker; Complete Time: 17:57 pm02/01 17:20 Order name: Seven wrap-joint: Left knee; Complete Time: 17:57 pm1 Administered Medications: 15:40 Drug: Tylenol #3 (300 mg-30 mg) 0.5 tabs Route: PO; vc 15:41 CANCELLED (Duplicate Order): Tylenol #3 (300 mg-30 mg) 1 tablet PO once; RASS on ADMIN: tw2 Combtv4, Very Agttd3, Agttd2, Rstlss1, AlertClm0, Drwsy-1, Lt Sdtn-2, Mod Sdtn-3, Dp Sdtn-4, UnArsble-5 Disposition: 02/02 08:39 Co-signature as Attending Physician, Bossman Rubio MD I agree with the assessment and alden plan of care. Disposition: 02/02/20 17:44 Discharged to Home. Impression: Nondisplaced fracture of lateral malleolus of right fibula, Pain in left knee, Other slipping, tripping and stumbling and falls. - Condition is Stable. - Discharge Instructions: Ankle Fracture, How to Use a Walker, Knee Pain, Walking Boot. - Prescriptions for Tylenol- Codeine #3 300-30 mg Oral Tablet - take 0.5 tablet by ORAL route every 8 hours As needed; 10 tablet. - Medication Reconciliation Form, Thank You Letter, Antibiotic Education, Prescription Opioid Use form. - Follow up: Emergency Department; When: As needed; Reason: Worsening of condition. Follow up: Private Physician; When: 2 - 3 days; Reason: Recheck today's complaints, Continuance of care, Re-evaluation by your physician. - Problem is new. - Symptoms have improved. Signatures: Dispatcher [employer] Bossman Chávez MD MD cha Marinas, Patrick, NAD[facility] [employer] COACH pm1 Moira Doe RN RN tw2 Anaid Levi RN RN vc Corrections: (The following items were deleted from the chart) 02/01 15:41 15:31 Tylenol #3 (300 mg-30 mg) 1 tablet PO once; RASS on ADMIN: Combtv4, Very Agttd3, tw2 Agttd2, Rstlss1, AlertClm0, Drwsy-1, Lt Sdtn-2, Mod Sdtn-3, Dp Sdtn-4, UnArsble-5 ordered. pm1 15:41 15:41 Tylenol #3 (300 mg-30 mg) 1 tablet PO once; RASS on ADMIN: Combtv4, Very Agttd3, tw2 Agttd2, Rstlss1, AlertClm0, Drwsy-1, Lt Sdtn-2, Mod Sdtn-3, Dp Sdtn-4, UnArsble-5 given. vc 15:41 15:41 Tylenol #3 (300 mg-30 mg) 1 tablet PO once; RASS on ADMIN: Combtv4, Very Agttd3, tw2 Agttd2, Rstlss1, AlertClm0, Drwsy-1, Lt Sdtn-2, Mod Sdtn-3, Dp Sdtn-4, UnArsble-5 ordered. tw2 18:25 17:44 02/02/2020 17:44 Discharged to Home. Impression: Nondisplaced fracture of lateral vc malleolus of right fibula; Pain in left knee; Other slipping, tripping and stumbling and falls. Condition is Stable. Forms are Medication Reconciliation Form, Thank You Letter, Antibiotic Education, Prescription Opioid Use. Follow up: Emergency Department; When: As needed; Reason: Worsening of condition. Follow up: Private Physician; When: 2 - 3 days; Reason: Recheck today's complaints, Continuance of care, Re-evaluation by your physician. Problem is new. Symptoms have improved. pm1
[2020-02-02 18:29] VITALS: TEMP 98
[2020-02-02 18:30] VITALS: BP 152/80; O2SAT 100
== END 2020-02-02 18:25 | disposition home or self-care (01) ==
LOC: ER 15:28
PROC: 2W3QX1Z Immobilization of Right Lower Leg using Splint (ICD-10-PCS; principal; 2020-02-02)
DX: S82.64XA Nondisplaced fracture of lateral malleolus of right fibula, initial encounter for closed fracture (principal); M25.562 Pain in left knee; W01.0XXA Fall on same level from slipping, tripping and stumbling without subsequent striking against object, initial encounter; Y93.01 Activity, walking, marching and hiking; Y92.009 Unspecified place in unspecified non-institutional (private) residence as the place of occurrence of the external cause; Z79.82 Long term (current) use of aspirin; Z88.5 Allergy status to narcotic agent; Z88.8 Allergy status to other drugs, medicaments and biological substances; Z91.040 Latex allergy status; Z91.048 Other nonmedicinal substance allergy status
CPT/HCPCS: 99284

== ENCOUNTER 2022-03-30 11:48 | Inpatient (IN) | payer OTHER ==
--- OUTSIDE RECORDS SUMMARY | 2022-03-30 11:51 | XMS REPORT | Continuity of Care Document ---
:1935 Author Organization [facility] t Address [address] [place] [address] Care Team Providers Name Role Phone Asked, No Pcp Primary Care Physician Unavailable Hans Yoo Attending Clinician Unavailable Thomas JAUREGUI, Hilary Green Attending Clinician Tiffanie FOREIGN LEGAL CONSULTANTNomiC, Bernadette Lawson Attending Clinician [phone] Payers Payer Name Policy Type Policy Number Effective Date Expiration Date S ource Problems This patient has no known problems. Allergies, Adverse Reactions, Alerts Allergy Allergy Status Severity Reaction(s) Onset Inactive Treating Comm ents Source Name Type Date Date Clinician Morphine Adverse Active Info Not Commo n Sulfate Reaction Available [facility] Librax Adverse Active Info Not Common Reaction Available [facility] Codeine Adverse Active Info Not Common Sulfate Reaction Available [facility] Ativan Adverse Active Info Not Common Reaction Available [facility] Actonel Adverse Active Info Not Common Reaction Available [facility] Social History Social Habit Start Date Stop Date Quantity Comments Source Sex Assigned At [birth year] [facility] 00:00:00 00:00:00 Smoking Status Start Date Stop Date Source Tobacco smoking consumption unknown [facility] Medications Ordered Filled Start Stop Current Ordering Indication Dosage Frequency Signature Comments Components Source Medication Medication Date Date Medication? Clinician (SIG) Name Name Aripiprazol Aripiprazol Yes Rich not Common e e Zaragoza defined [facility] Fluoxetine Fluoxetine Yes Rich not Common HCl HCl Zaragoza defined [facility] Acetaminoph Acetaminoph Yes Rich not Common en-Codeine en-Codeine Zaragoza defined [facility] #3 #3 [facility] Metoprolol Metoprolol Yes Rich not Common Succinate Succinate Zaragoza defined [facility] Vitamin D Vitamin D Yes Rich not Co mmon Zaragoza defined [facility] Deplin Deplin Yes Rich not Common Zaragoza defined [facility] Promethazin Promethazin Yes Rich not Common e HCl e HCl Zaragoza defined [facility] Clonazepam Clonazepam Yes Rich not Common Zaragoza defined [facility] Shingrix Shingrix Yes Rich not Comm on Zaragoza defined [facility] Sotalol HCl Sotalol HCl Yes Rich not Common (AF) (AF) Zaragoza defined [facility] Mirtazapine Mirtazapine Yes Rich not Common Zaragoza defined [facility] PrednisoLON PrednisoLON Yes Rich not Common E Acetate E Acetate Zaragoza defined [facility] Vigamox Vigamox Yes Rich not Common Zaragoza defined [facility] Bisoprolol Bisoprolol Yes Rich not Common Fumarate Fumarate Zaragoza defined [facility] Carvedilol Carvedilol Yes Rich not Common Zaragoza defined [facility] Hydrocortis Hydrocortis Yes Rich not Common one Acetate one Acetate Zaragoza defined [facility] Fluzone Fluzone Yes Rich not Common Quadrivalen Quadrivalen Zaragoza defined [facility] t [facility] BusPIRone BusPIRone Yes Rich not Co mmon HCl HCl Zaragoza defined [facility] Flecainide Flecainide Yes Rich not Common Acetate Acetate Zaragoza defined [facility] Diltiazem Diltiazem Yes Rich not Co mmon HCl HCl Zaragoza defined [facility] Procedures Procedure Date / Time Performed Performing Clinician Sonia e CT ABDOMEN PELVIS W 2021-10-27 18:48:46 Hilary Guzman [facility] CONTRAST POC CREATININE 2021-10-27 18:04:00 Hilary Guzman [facility] ESTIMATED GFR 2021-10-27 18:04:00 Hilary Guzman [facility] Plan of Care Planned Activity Planned Date Details Comments Source Future Scheduled 2022-03-30 HEPATITIS B VACCINES Met [facility] Test 11:50:49 (1 of 3 - 3-dose series) [code = HEPATITIS B VACCINES (1 of 3 - 3-dose series)] Future Scheduled 2022-03-30 SHINGLES VACCINES (1 Met [facility] Test 11:50:49 of 2) [code = SHINGLES VACCINES (1 of 2)] Future Scheduled 2022-03-30 65+ PNEUMOCOCCAL Methodi [facility] Test 11:50:49 VACCINE (1 - PCV) [code = 65+ PNEUMOCOCCAL VACCINE (1 - PCV)] Future Scheduled 2022-03-30 COVID-19 VACCINE (3 - [facility] Test 11:50:49 Booster for Moderna series) [code = COVID-19 VACCINE (3 - Booster for Moderna series)] Future Scheduled 2022-03-30 INFLUENZA VACCINE Method [facility] Test 11:50:49 [code = INFLUENZA VACCINE] Encounters Start End Encounter Admission Attending Care Care Encounter Source Date/Time Date/Time Type Type Clinicians Facility Department ID 2021-08-02 Outpatient [facility] [id number] Common 11:34:28 Hans 09855 [facility] 2021-10-27 2021-10-27 Hospital Thomas, .2.840.1 [id number] Methodi 12:44:40 23:59:00 Encounter Hilary Green [id number] 3.430.2.7 Hospit a .[id number] l .8 2021-10-27 2021-10-27 [id number] [place] 00:00:00 00:00:[address]ILARY [address] 2021-10-27 2021-10-27 Travel 1.2.840.1 [id number] Methodi 00:00:00 00:00:[address] 3.430.2.7 0.2.7.3.698 Ho spita .3.016381 084.8 l .8 2021-10-05 2021-10-05 Travel 1.2.840.1 [id number] [id number] Methodi 00:00:00 00:00:[address] 3.430.2.7 0.2.7.3.698 Ho spita .3.557480 084.8 l .8 2021-09-28 2021-09-28 Orders [place] 1.2.840.1 [id number] Methodi 00:00:00 00:00:00 Only my, 44009.1.[address] Bernadette 3.430.2.7 Hospi ta Lawson .[id number] l .8 2020-03-24 2020-03-24 Outpatient STLMLC STLMLC [id number] Common 00:00:00 00:00:00 Spirit - [facility] 2020-02-23 2020-02-23 Outpatient Brazjonny Paulsont [id number] Common 13:30:00 13:30:00 [facility] 2020-02-08 2020-02-08 Outpatient [facility] [place] [id number] Common 14:30:00 14:30:00 t [facility] Results Test Description Test Time Test Comments Results Result Comments Source POC creatinine 2021-10-27 18:06:00 Test Item Value Reference Range Interpretation Comme nts POC creatinine (test code = 0.8 mg/dl 0.5-0.9 Psychological Stress Evaluator Name: Pamela Oden [id number]) ID: [id number] [id number] 18:06:00 Test Item Value Reference Range Interpretation Comments Estimated GFR (test mL/min/1.73 m2 [facility] code = 49920-4) Interpretati onG1 >=90 Normal or highG 2 60-89 Mildly decrease dG3a 45-59 Mildly to moder ately [id number] 30 -44 Moderately to s everely decreasedG4 15- 29 Severely decreasedG5 <15 Kidney failureThe eGFR was calculated usin g the Chronic Kidney Disease Epidemiology Co llaboration (CKD-EPI) equat ion. Interpretation is based on recommendations of the National Kidney Foundation-Kidn ey Disease Outcomes Qualit y Initiative (NKF-KDOQI) pub lished in 2014. [facility]
--- NOTE | 2022-03-30 13:01 | RAD REPORT ---
EXAM DESCRIPTION: RAD - Chest Single View - 03/30/2022 12:56 pm CLINICAL HISTORY: CHEST PAIN Chest pain. COMPARISON: Chest Single View dated 03/20/2019; Chest Single View dated 10/16/2018; Chest Single View dated 10/07/2018; CHEST PA AND LAT 2 VIEW dated 03/17/2015 FINDINGS: Portable technique limits examination quality. The lungs are mildly emphysematous but grossly clear. The heart is normal in size. No displaced fract ures. IMPRESSION: No acute intrathoracic process suspected. Mild COPD.
[2022-03-30 13:15] LABS: Absolute Lymphocytes (CBC) 1.4 K/uL (0.7-4.9); Hematocrit 42.7 % (36.0-45.0); Lymphocytes % 22.7 % (15.3-44.8); MCV 88.8 fL (80-100); MPV 7.1 fL (7.6-11.3); RBC Red Blood Cell Count 4.81 M/uL (3.86-4.86)
[2022-03-30] MEDS ORDERED: PANTOPRAZOLE 40 MG INJ ONE (13:17)
[2022-03-30] MEDS ORDERED: MAGNES/ALUMIN/SIMET 30ML UCUP ONE (13:17)
[2022-03-30] MEDS ORDERED: LIDOCAINE VISCOUS 2% SOLN 15 ML UDC ONE (13:17)
[2022-03-30 13:37] LABS: Albumin 3.6 g/dL (3.4-5.0); Bilirubin Direct 0.1 mg/dL (0-0.2); Bilirubin Total 0.6 mg/dL (0.2-1.0); Potassium 4.3 mmol/L (3.5-5.1); Protein, Total 7.5 g/dL (6.4-8.2)
[2022-03-30 13:41] LABS: Troponin High Sensitivity 523.1 pg/mL (<58.9)
--- NOTE | 2022-03-30 15:11 | EDPHYS ---
Physician Documentation [facility] Name: Mary Damian Age: 86 yrs Sex: Female : 1935 Arrival Date: 03/30/2022 Time: 12:15 Bed 17 Private MD: ED Physician Rodolfo Busby HPI: 03/30 15:03 This 86 yrs old Female presents to ER via EMS with complaints of Chest Pain. rn 15:03 The patient or guardian reports chest pain that is located primarily in the substernal rn area. Onset: just prior to arrival. 15:04 The pain does not radiate. Associated signs and symptoms: Pertinent positives: rn abdominal pain, Pertinent negatives: cough, diaphoresis, shortness of breath, syncope, vomiting. The chest pain is described as aching, burning. Duration: The patient or guardian reports multiple episodes, that are intermittent. Severity of pain: At its worst the pain was mild in the emergency department the pain is unchanged. The patient has not experienced similar symptoms in the past. The patient has not recently seen a physician. Historical: - Allergies: 12:22 "very sensitive to high dosage of any meds, have to start low dose and work up"; em6 12:22 Actonel; em6 12:22 BENZODIAZEPINES; ( Ativan, Lorazepam, Librax); em6 12:22 Codeine; em6 12:22 Evista; em6 12:22 Librax; em6 12:22 Morphine; em6 12:22 Pure Vitamins; em6 - PMHx: 12:22 Irregular heart rate; Irritable bowel syndrome; em6 - Immunization history:: Adult Immunizations unknown. - Social history:: Smoking status: unknown. - Family history:: not pertinent. - Hospitalizations: : No recent hospitalization is reported. ROS: 15:04 Constitutional: Negative for fever, chills, and weight loss, Eyes: Negative for injury, rn pain, redness, and discharge, Cardiovascular: Negative for palpitations, and edema Respiratory: Negative for shortness of breath, cough, wheezing, and pleuritic chest pain, Abdomen/GI: Negative for nausea, vomiting, diarrhea, and constipation, Back: Negative for injury and pain, MS/Extremity: Negative for injury and deformity, Skin: Negative for injury, rash, and discoloration, Neuro: Negative for headache, weakness, numbness, tingling, and seizure. Exam: 15:04 Constitutional: This is a well developed, well nourished patient who is awake, alert, rn and in no acute distress. Head/Face: Normocephalic, atraumatic. Cardiovascular: Regular rate and rhythm. No pulse deficits. Respiratory: No increased work of breathing, no retractions or nasal flaring. Abdomen/GI: soft, mild epigastric tenderness, no rebound Skin: Warm, dry MS/ Extremity: Pulses equal, no cyanosis. Neuro: Awake and alert, GCS 15 15:46 ECG was reviewed by the Attending Physician. rn Vital Signs: 12:16 BP 138 / 84; Pulse 67; Resp 16; Temp 98.3; Pulse Ox 100% on R/A; Weight 48.99 kg; em6 Height 5 ft. (152.40 cm); Pain 6/10; 13:00 BP 137 / 79; Pulse 59; Resp 16; Pulse Ox 100% on R/A; em6 14:45 BP 123 / 74; Pulse 60; Resp 16; Pulse Ox 95% on R/A; em6 15:30 BP 133 / 76; Pulse 63; Resp 20; Pulse Ox 100% ; em6 16:30 BP 140 / 73; Pulse 72; Resp 17; Pulse Ox 98% on R/A; em6 18:20 BP 141 / 81; Pulse 78; Resp 15; Pulse Ox 99% on R/A; em6 12:16 Body Mass Index 21.09 (48.99 kg, 152.40 cm) em6 MDM: 12:19 Patient medically screened. rn 15:04 Differential diagnosis: acute myocardial infarction, acute pericarditis, anxiety, rn coronary artery disease costochondritis, esophagitis, gastritis, pleurisy, pneumothorax, stable angina, unstable angina. The patient was not given aspirin in the Emergency Department. Administered by EMS. Data reviewed: vital signs, nurses notes, lab test result(s), EKG, radiologic studies, plain films, and as a result, I will admit patient. Counseling: I had a detailed discussion with the patient and/or guardian regarding: the historical points, exam findings, and any diagnostic results supporting the discharge/admit diagnosis, lab results, radiology results, the need for further work-up and treatment in the hospital. Response to treatment: the patient's symptoms have mildly improved after treatment, and as a result, I will admit patient. Admission orders: after a detailed discussion of the patient's condition and case, the admit orders are written by me. Special discussion:. ED course: Pt with elevated troponin, no acute ischemia on ECG, consulted with Dr. Green, will admit patient for further cardiac w/u.. 03/30 12:28 Order name: Basic Metabolic Panel; Complete Time: 14: rn 03/30 12:28 Order name: CBC with Diff; Complete Time: 14:03/30 12:28 Order name: LFT's; Complete Time: 14: rn 03/30 12:28 Order name: NT PRO-BNP; Complete Time: 14: rn 03/30 12:28 Order name: Troponin HS; Complete Time: 14: rn 03/30 12:28 Order name: Lipase; Complete Time: 14: rn 03/30 12:28 Order name: XRAY Chest (1 view); Complete Time: 13:03/30 16:53 Order name: SARS-COV-2 Antigen Rapid EDWI 03/31 00:17 Order name: Troponin High Sensitivity EDWI 03/30 12:28 Order name: EKG; Complete Time: 12:03/30 12:28 Order name: Cardiac monitoring; Complete Time: 13:03/30 12:28 Order name: EKG - Nurse/Tech; Complete Time: 13:03/30 12:28 Order name: IV Saline Lock; Complete Time: 13:03/30 12:28 Order name: Labs collected and sent; Complete Time: 13:03/30 12:28 Order name: O2 Per Protocol; Complete Time: 13:03/30 12:28 Order name: O2 Sat Monitoring; Complete Time: 13:03/30 17:00 Order name: Diet Heart Healthy; Complete Time: 17:01 em6 EC:46 Rate is 60 beats/min. Rhythm is regular. QRS [place] is Normal. [place] interval is normal. QRS rn interval is normal. QT interval is normal. No Q waves. T waves are Normal. No ST changes noted. Clinical impression: NSR w/ Non-specific ST/T Changes. Reviewed by me. Administered Medications: 13:25 Drug: ProTONIX (pantoprazole) 40 mg Route: IVP; Site: left forearm; em6 14:20 Follow up: Response: No adverse reaction em6 13:25 Drug: GI Cocktail without - (Maalox Suspension 30 ml, Lidocaine Liquid 2 % 15 em6 ml) Route: PO; 14:20 Follow up: Response: No adverse reaction em6 18:27 Drug: Lovenox (enoxaparin) 1 mg/kg Route: Sub-Q; Site: right lower abdomen; em6 19:18 Follow up: Response: No adverse reaction em6 18:27 Drug: Nitroglycerin 0.4 mg Route: Sublingual; em6 19:18 Follow up: Response: No adverse reaction em6 Disposition Summary: 03/30/22 15:10 Hospitalization Ordered Hospitalization Status: Inpatient Admission rn Provider: Hans Yoo rn Condition: Stable rn Problem: new rn Symptoms: have improved rn Bed/Room Type: Standard rn Location: Telemetry/MedSurg (Inpatient)(03/30/22 19:41) mw Room Assignment: 420(03/31/22 00:53) mw Diagnosis - Chest pain, unspecified rn - Subsequent non-ST elevation (NSTEMI) myocardial infarction rn Forms: - Medication Reconciliation Form rn - SBAR form rn Signatures: Dispatcher [employer] EDMary Virk RN RN mw Nieto, Roman, MD MD rn Martinez, Erika, RN RN em6 Corrections: (The following items were deleted from the chart) 19:36 15:10 Telemetry/MedSurg (Inpatient) rn mw 19:36 15:10 rn mw 19:41 19:36 BR ER HOLD mw mw 19:41 19:36 ERHOLD- mw mw 03/31 00:47 03/30 16:14 SARS-COV-2 Antigen Rapid+I.LAB.BRZ ordered. [facility] EDWI 03/31 00:53 03/30 19:41 mw mw
--- NOTE | 2022-03-30 15:11 | ER ---
Nurse's Notes [facility] Name: Mary Damian Age: 86 yrs Sex: Female : 1935 Arrival Date: 03/30/2022 Time: 12:15 Bed 17 Private MD: Diagnosis: Chest pain, unspecified;Subsequent non-ST elevation (NSTEMI) myocardial infarction Presentation: 03/30 12:16 Chief complaint:. Chief complaint: EMS states: we were called because of chest pain em6 staing pain of 6 does not radiate. she has history of anxiety. normal sinus on ekg bp of 140/72 and gave her aspirin 324 mg. no headache no other complain. Coronavirus screen: Client denies travel out of the [place] in the last 14 days. Ebola Screen: Patient negative for fever greater than or equal to 101.5 degrees Fahrenheit, and additional compatible Ebola Virus Disease symptoms. Initial Sepsis Screen: Does the patient meet any 2 criteria? No. Patient's initial sepsis screen is negative. Does the patient have a suspected source of infection? No. Patient's initial sepsis screen is negative. Risk Assessment: Do you want to hurt yourself or someone else? Patient reports no desire to harm self or others. Onset of symptoms was March 30, 2022. 12:16 Method Of Arrival: EMS: [facility] em6 12:16 Acuity: NICOLAS 3 em6 Triage Assessment: 12:21 General: Appears comfortable, Behavior is cooperative. Pain: Complains of pain in chest em6 Pain does not radiate. Pain currently is 6 out of 10 on a pain scale. Quality of pain is described as pressure, Pain began 3 hours ago. Cardiovascular: Heart tones present Patient's skin is warm and dry. Historical: - Allergies: 12:22 "very sensitive to high dosage of any meds, have to start low dose and work up"; em6 12:22 Actonel; em6 12:22 BENZODIAZEPINES; ( Ativan, Lorazepam, Librax); em6 12:22 Codeine; em6 12:22 Evista; em6 12:22 Librax; em6 12:22 Morphine; em6 12:22 Pure Vitamins; em6 - PMHx: 12:22 Irregular heart rate; Irritable bowel syndrome; em6 - Immunization history:: Adult Immunizations unknown. - Social history:: Smoking status: unknown. - Family history:: not pertinent. - Hospitalizations: : No recent hospitalization is reported. Screenin:21 Abuse screen: Denies threats or abuse. Nutritional screening: No deficits noted. em6 Tuberculosis screening: No symptoms or risk factors identified. 03/31 00:48 Fall Risk None identified. lg3 Assessment: 03/30 12:23 General: Appears comfortable, Behavior is cooperative. Pain: Complains of pain in chest em6 Pain does not radiate. Pain currently is 6 out of 10 on a pain scale. Quality of pain is described as pressure, Pain began 3 hours ago. Is continuous. Neuro: Allen Agitation-Sedation Scale (RASS): 0 - Alert and Calm Level of Consciousness is awake, alert, obeys commands, Oriented to person, place, time, situation. Cardiovascular: Heart tones present Patient's skin is warm and dry. Respiratory: Airway is patent Respiratory effort is even, unlabored, Breath sounds are clear bilaterally. GI: No signs and/or symptoms were reported involving the gastrointestinal system. Abdomen is non-distended. : No signs and/or symptoms were reported regarding the genitourinary system. EENT: No signs and/or symptoms were reported regarding the EENT system. Derm: No signs and/or symptoms reported regarding the dermatologic system. Musculoskeletal: Circulation, motion, and sensation intact. Range of motion: intact in all extremities. 13:30 Reassessment: Patient appears in no apparent distress at this time. No changes from em6 previously documented assessment. Patient and/or family updated on plan of care and expected duration. Pain level reassessed. Patient is alert, oriented x 3, equal unlabored respirations, skin warm/dry/pink. 14:30 Reassessment: Patient appears in no apparent distress at this time. No changes from em6 previously documented assessment. Patient and/or family updated on plan of care and expected duration. Pain level reassessed. Patient is alert, oriented x 3, equal unlabored respirations, skin warm/dry/pink. 15:30 Reassessment: Patient appears in no apparent distress at this time. No changes from em6 previously documented assessment. Patient and/or family updated on plan of care and expected duration. Pain level reassessed. Patient is alert, oriented x 3, equal unlabored respirations, skin warm/dry/pink. 16:30 Reassessment: Patient appears in no apparent distress at this time. No changes from em6 previously documented assessment. Patient and/or family updated on plan of care and expected duration. Pain level reassessed. Patient is alert, oriented x 3, equal unlabored respirations, skin warm/dry/pink. 17:30 Reassessment: Patient appears in no apparent distress at this time. No changes from em6 previously documented assessment. Patient and/or family updated on plan of care and expected duration. Pain level reassessed. Patient is alert, oriented x 3, equal unlabored respirations, skin warm/dry/pink. 18:30 Reassessment: Patient and/or family updated on plan of care and expected duration. Pain em6 level reassessed. Patient is alert, oriented x 3, equal unlabored respirations, skin warm/dry/pink. Reassessment: notified provider of chest pain. new orders given . Pain: Complains of pain in chest Pain does not radiate. Pain currently is 5 out of 10 on a pain scale. Quality of pain is described as pressure. Neuro: Allen Agitation-Sedation Scale (RASS): 0 - Alert and Calm Level of Consciousness is awake, alert, obeys commands. Vital Signs: 12:16 BP 138 / 84; Pulse 67; Resp 16; Temp 98.3; Pulse Ox 100% on R/A; Weight 48.99 kg; em6 Height 5 ft. (152.40 cm); Pain 6/10; 13:00 BP 137 / 79; Pulse 59; Resp 16; Pulse Ox 100% on R/A; em6 14:45 BP 123 / 74; Pulse 60; Resp 16; Pulse Ox 95% on R/A; em6 15:30 BP 133 / 76; Pulse 63; Resp 20; Pulse Ox 100% ; em6 16:30 BP 140 / 73; Pulse 72; Resp 17; Pulse Ox 98% on R/A; em6 18:20 BP 141 / 81; Pulse 78; Resp 15; Pulse Ox 99% on R/A; em6 12:16 Body Mass Index 21.09 (48.99 kg, 152.40 cm) em6 ED Course: 12:15 Patient arrived in ED. iw 12:19 Rodolfo Busby MD is Attending Physician. rn 12:21 Triage completed. em6 12:22 Arm band placed on right wrist. em6 12:22 Bed in low position. Call light in reach. Side rails up X2. satellite project site monitor on. Pulse em6 ox on. NIBP on. Warm blanket given. 12:23 Patient maintains SpO2 saturation greater than 95% on room air. em6 12:58 XRAY Chest (1 view) In Process Unspecified. EDMS 13:20 Inserted saline lock: 22 gauge in left forearm, using aseptic technique. Blood em6 collected. 15:09 Hans Yoo MD is Hospitalizing Provider. rn 19:40 role handed off by Abbi Fields RN mw2 03/31 00:47 No provider procedures requiring assistance completed. Patient admitted, IV remains in lg3 place. intact, No redness/swelling at site. Administered Medications: 03/30 13:25 Drug: ProTONIX (pantoprazole) 40 mg Route: IVP; Site: left forearm; em6 14:20 Follow up: Response: No adverse reaction em6 13:25 Drug: GI Cocktail without - (Maalox Suspension 30 ml, Lidocaine Liquid 2 % 15 em6 ml) Route: PO; 14:20 Follow up: Response: No adverse reaction em6 18:27 Drug: Lovenox (enoxaparin) 1 mg/kg Route: Sub-Q; Site: right lower abdomen; em6 19:18 Follow up: Response: No adverse reaction em6 18:27 Drug: Nitroglycerin 0.4 mg Route: Sublingual; em6 19:18 Follow up: Response: No adverse reaction em6 Medication: 03/31 00:48 VIS not applicable for this client. lg3 Outcome: 03/30 15:10 Decision to Hospitalize by Provider. rn 03/31 00:47 Admitted to Med/surg accompanied by tech, via wheelchair. lg3 Condition: stable Instructed on the need for admit, Demonstrated understanding of instructions. 01:50 Patient left the ED. tw5 Signatures: Dispatcher [employer] EDMS Soo Lobo RN RN iw Nieto, Roman, MD MD rn [place], MyKena mw2 Cuca Hawkins RN RN lg3 Za Wiggins tw5 Abbi Fields RN RN em6 Corrections: (The following items were deleted from the chart) 03/30 15:38 13:25 ProTONIX (pantoprazole) 40 mg IVP in left antecubital em6 em6
[2022-03-30 16:53] LABS: SARS-CoV-2 Antigen Rapid Res Negative (Negative)
[2022-03-30] MEDS ORDERED: ENOXAPARIN 60 MG/0.6 ML SQ ONE (18:29)
[2022-03-30] MEDS ORDERED: NITROGLYCERIN 0.4 MG/TAB SL ONE (18:31)
[2022-03-30] MEDS ORDERED: ENOXAPARIN 100 MG/ML SYR SQ SCH (23:24)
[2022-03-30] MEDS ORDERED: ENOXAPARIN 60 MG/0.6 ML SQ SCH (23:30)
--- NOTE | 2022-03-31 00:57 | CON ---
Date of Consultation: 03/30/2022 Reason For Consultation: Elevated troponin and chest pain. History Of Present Illness: This is an 86-year-old female with no significant past medical history. She presented to the emergency room with pressure-like chest pain, retrosternal that radiated to lef t upper extremity along with nausea and mild shortness of breath. It happened while walking briskly. The patient presented to the emergency room. Her pain is completely resolved. The patient is know n to have irritable bowel syndrome, but no history of GI bleed. In the ER, EKG without acute specifi c abnormalities; however, troponin was elevated, suggestive of non-ST elevation myocardial infarction . The patient was completely pain free at the time of my evaluation. Past Medical History: Irritable bowel syndrome. Medications: Refer to reconciliation sheet for detailed list. Allergies: LONG LIST OF ALLERGY WAS REVIEWED. PLEASE REFER TO NURSE'S NOTE. Family History: No premature coronary artery disease or cancer. Social History: Does not smoke or drink. Does not use any drugs. Review of Systems: All systems reviewed and were negative except as mentioned in HPI. Physical Examination: Vital Signs: Reviewed. Head And Neck: Pupils are equal, reactive to light. Intact eye movements. No JVD. No cervical lym phadenopathy. Neck supple. Thyroid is not enlarged. Lungs: Clear to auscultation bilaterally. No rhonchi, rales, or crackles. No accessory muscle use. Heart: Regular rate and rhythm. No extra sounds. Abdomen: Soft, nontender. Bowel sounds positive. No organomegaly. No masses or hernia. No rigidi ty or rebound. Extremities: No edema, clubbing, or cyanosis. Intact pulses. Skin: No rashes. Neurologic: Alert, awake, oriented x3. No acute focal deficits appreciated. Lymph Nodes: No cervical or axillary lymphadenopathy. Investigations: Troponin is 523. BUN is 15, creatinine 0.88. Hemoglobin 14.4, and the platelet cou nt is 261. Assessment And Recommendations: 1.Non-ST elevation myocardial infarction. Admit to the hospital. Start on Lovenox 1 mg/kg subcu q. 12 hours and baby aspirin 81 mg and to be monitored over the weekend on telemetry. Plan for coronary angiogram on Saturday. If blood pressure allows, low dose of beta-brody to start and I will monitor the patient with you. 2.Irritable bowel syndrome. There is no history of stomach ulcers. We will check her hemoglobin an d continue antacid management. /ROSINA Voice ID: [id number] Report ID: [id number]
[2022-03-31 04:38] LABS: Absolute Lymphocytes (CBC) 1.9 K/uL (0.7-4.9); Hematocrit 36.4 % (36.0-45.0); Lymphocytes % 33.7 % (15.3-44.8); MCV 87.3 fL (80-100); MPV 7.2 fL (7.6-11.3); RBC Red Blood Cell Count 4.17 M/uL (3.86-4.86)
[2022-03-31 04:58] LABS: Potassium 3.5 mmol/L (3.5-5.1)
[2022-03-31 05:08] LABS: Troponin High Sensitivity 684.5 pg/mL (<58.9)
[2022-03-31] MEDS ORDERED: NITROGLYCERIN 0.4 MG/TAB SL PRN (08:01)
--- NOTE | 2022-03-31 08:07 | P.HP ---
Certification for Inpatient Patient admitted to: Inpatient With expected LOS: >2 Midnights Practitioner: I am a practitioner with admitting privileges, knowledge of patient current condition, hospital course, and medical plan of care. Services: Services provided to patient in accordance with Admission requirements found in Title 42 Section 412.3 of the Code of Federal Regulations Patient History Date of Service: 03/31/22 Reason for admission: CHEST PAIN History of Present Illness: POWER WOKE UP WITH CHEST PAIN LIKE BRICK ON THE CHEST YESTERDAY, HAD SOME GERD WITH IT. HER CE ARE HIGH AND COMING DOWN. SHE STILL HAS PAIN SINCE THEN. NTG HELPS TO RELIEVE IT. SHE JUST HAD SEEN DR. LUU AND HAD NORMAL EKG. HER LAST ST TEST WAS NORMAL TWO YEARS AGO. SHE IS VERY ANXIOUS AND HER PALPITATIONS NEED ABOUT 1/4TH OF COREG 3.125 MG. 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 SHE HAS SEVERE IBS ALSO. Allergies Benzodiazepines Allergy (Verified 03/17/15 15:59) Nausea/Vomiting Bisphosphonates Allergy (Verified 03/17/15 17:09) Nausea/Vomiting buspirone HCl [From BuSpar] Allergy (Verified 03/17/15 17:09) Nausea/Vomiting codeine Allergy (Verified 03/17/15 16:01) Nausea/Vomiting escitalopram oxalate [From Lexapro] Allergy (Verified 03/17/15 17:09) Nausea/Vomiting mirtazapine [From Remeron] Allergy (Verified 03/17/15 17:09) Nausea/Vomiting morphine Allergy (Verified 03/17/15 16:01) Nausea/Vomiting nortriptyline HCl [From Pamelor] Allergy (Verified 03/17/15 17:09) Nausea/Vomiting raloxifene HCl [From Evista] Allergy (Verified 03/17/15 16:01) Nausea/Vomiting risedronate sodium [From Actonel] Allergy (Verified 03/17/15 16:01) Nausea/Vomiting teriparatide [From Forteo] Allergy (Verified 03/17/15 17:09) Nausea/Vomiting Home Medications: Aspirin Chewable [Aspirin Chewable*] 162.5 mg PO DAILYPRN PRN 03/17/15 Hydrocortisone Acetate 25 mg RC PRN PRN 03/17/15 Cholecalciferol (Vitamin D3) [Vitamin D3] 150 mcg PO DAILY 04/11/19 Cyanocobalamin (Vitamin B-12) [Vitamin B12] 125 mcg PO DAILY 10/16/18 carvediloL [Carvedilol] 3.125 mg PO BID #60 tablet 10/18/18 clonazePAM [Klonopin] 0.125 mg PO BEDTIME 03/31/22 - Past Medical/Surgical History Diabetic: No -: IBS -: irreg hr -: anxiety -: cataracts -: Hysterectomy -: Removal of Esteabn's Neuroma-right foot -: cataracts - Family History Father -: Heart disease, Kidney disease Mother -: Heart disease - Social History Smoking Status: Never smoker Alcohol use: No CD- Drugs: No Caffeine use: No Review of Systems 10-point ROS is otherwise unremarkable Physical Examination - Vital Signs Temperature: 97.6 F Blood Pressure: 104/55 Pulse: 70 Respirations: 17 Pulse Ox (%): 96 - Physical Exam General: Alert, In no apparent distress HEENT: Atraumatic, PERRLA, Mucous membr. moist/pink, EOMI, Sclerae nonicteric Neck: Supple, 2+ carotid pulse no bruit, No LAD, Without JVD or thyroid abnormality Respiratory: Clear to auscultation bilaterally, Normal air movement Cardiovascular: Regular rate/rhythm, Normal S1 S2 Gastrointestinal: Normal bowel sounds, No tenderness Musculoskeletal: No tenderness Integumentary: No rashes Neurological: Normal gait, Normal speech, Normal strength at 5/5 x4 extr, Normal tone, Normal affect Lymphatics: No axilla or inguinal lymphadenopathy - Studies Laboratory Data (last 24 hrs) 03/30/22 13:03: WBC 6.30, Hgb 14.4, Hct 42.7, Plt Count 261 03/30/22 13:03: Sodium 136, Potassium 4.3, BUN 15, Creatinine 0.88, Glucose 112 H, Total Bilirubin 0.6, AST 22, ALT 28, Alkaline Phosphatase 84, Lipase 185 Assessment and Plan - Problems (Diagnosis) (1) Non-ST elevated myocardial infarction Current Visit: Yes Status: Acute Plan: LOVENOX ASPIRIN NTG PRN. CATH SATURDAY. (2) Palpitations Current Visit: No Status: Acute Plan: COREG SMALL DOSE BID NOTED BEFORE. CHRONIC ISSUE. - Advance Directives Does patient have a Living Will: Yes Does patient have a Durable POA for Healthcare: No
[2022-03-31] MEDS: carvediloL 3.125 MG TAB PO SCH ×2 (08:59→20:16)
[2022-03-31] MEDS: ENOXAPARIN 60 MG/0.6 ML SQ SCH ×2 (08:59→20:16)
[2022-03-31] MEDS ORDERED: ENOXAPARIN 60 MG/0.6 ML SQ SCH (09:00)
[2022-03-31] MEDS ORDERED: ASPIRIN EC 81 MG TAB PO SCH (09:00)
[2022-03-31] MEDS ORDERED: PNEUMOCOCCAL VACCINE 0.5 ML IMVAC ONE (10:00)
[2022-03-31] MEDS: ASPIRIN 81 MG CHEWABLE TABLET PO SCH (15:41)
[2022-03-31] MEDS ORDERED: clonazePAM 0.5 MG TAB PO PRN (20:00)
[2022-03-31] MEDS ORDERED: clonazePAM 1 MG TAB ONE (20:20)
--- NOTE | 2022-03-31 20:40 | PN ---
Date of Progress Note: 03/31/2022 Subjective: Seen at bedside. Clinically doing well. She is having intermittent chest pain, however , responsive to sublingual nitroglycerin very well. Review of Systems: No current chest pain. No nausea, vomiting, diarrhea. No abdominal pain. No dysuria, polyuria, or urinary urgency. No skin rash. All other systems reviewed and they were negative. Physical Examination: Vital Signs: Reviewed. Head and Neck: Pupils are equal, reactive to light. Intact eye movements. No JVD. No cervical lym phadenopathy. Neck: Supple. Thyroid is not enlarged. Lungs: Clear to auscultation. No rhonchi, wheezing, or crackles. Heart: Regular rate and rhythm. No extra sounds. Abdomen: Soft, nontender. Bowel sounds positive. No organomegaly. No masses or hernia. Extremities: No edema, clubbing, or cyanosis. Intact pulses. SKIN: No rash noted. Neuro: Alert, awake, oriented x3. No acute deficit appreciated. Investigations: Labs were reviewed. Her troponin is trending down, peaked at 1186 and now it is 684 . Assessment And Recommendations: 1.Non-ST elevation myocardial infarction. Troponin is trending down. Continue Lovenox and aspirin. Plan for coronary angiogram on Saturday. Agree with Coreg 3.125 mg twice a day. Titrate up if blood pressure allows. 2.Palpitations. She has been in sinus and no tachycardia. Monitor on telemetry. SR/MODL Voice ID: [id number] Report ID: [id number]
[2022-04-01] MEDS ORDERED: HYDROCORTISONE ACETATE 25 MG PR PRN (07:18)
[2022-04-01] MEDS: carvediloL 3.125 MG TAB PO SCH ×2 (08:47→20:02)
[2022-04-01] MEDS: ASPIRIN 81 MG CHEWABLE TABLET PO SCH (08:47)
[2022-04-01] MEDS: HOME MED 1 EA UNK (Cyanocobalamin (Vitamin B-12) [Vitamin B12] 2,500 MCG Tablet) PO SCH (08:48)
[2022-04-01] MEDS: ENOXAPARIN 60 MG/0.6 ML SQ SCH ×2 (08:48→20:02)
[2022-04-01] MEDS: HOME MED 1 EA UNK (Cholecalciferol (Vitamin D3) [Vitamin D3] 1,000 UNIT Capsule) PO SCH (08:49)
--- NOTE | 2022-04-01 14:54 | P.PN ---
Subjective Date of Service: 04/01/22 Chief Complaint: NO PAIN. Subjective: Improving SHE HAD PANIC ATTACK. Review of Systems 10-point ROS is otherwise unremarkable General: Weakness Physical Examination - Vital Signs Temperature: 97.5 F Blood Pressure: 104/63 Pulse: 76 Respirations: 14 Pulse Ox (%): 99 - Physical Exam General: Alert, In no apparent distress HEENT: Atraumatic, PERRLA, EOMI Neck: Supple, JVD not distended Respiratory: Clear to auscultation bilaterally, Normal air movement Cardiovascular: Regular rate/rhythm, Normal S1 S2 Gastrointestinal: Normal bowel sounds, No tenderness Musculoskeletal: No tenderness Integumentary: No rashes Neurological: Normal speech, Normal tone, Normal affect Lymphatics: No axilla or inguinal lymphadenopathy - Studies Medications List Reviewed: Yes Assessment And Plan - Current Problems (Diagnosis) (1) Non-ST elevated myocardial infarction Current Visit: Yes Status: Acute Plan: LOVENOX ASPIRIN NTG PRN. CATH SATURDAY. CATH IN AM. (2) Palpitations Current Visit: No Status: Acute Plan: COREG SMALL DOSE BID NOTED BEFORE. CHRONIC ISSUE.
--- NOTE | 2022-04-01 20:01 | PN ---
Date of Progress Note: 04/01/2022 Subjective: Seen at bedside. Chest pain-free at the present time. Review of Systems: No acute chest pain. She had brief episodes, responded to nitroglycerin. No nausea, vomiting, or di arrhea. No abdominal pain. No dysuria, polyuria, or urinary urgency. All other systems reviewed ar e negative. Objective: Vital Signs: Temperature is 97.5, pulse 76, breathing at 14, blood pressure 104/63, and saturating 99% on room air. General: Pleasant, elderly female, in no apparent distress. Head and Neck: Pupils are equal and reactive to light. Intact eye movements. No JVD. No cervical lymphadenopathy. Neck: Supple. Thyroid is not enlarged. Lungs: Clear to auscultation bilaterally. No rhonchi, wheezing, or crackles. No accessory muscle u se. Heart: Regular rate and rhythm. No extra sounds. Abdomen: Soft and nontender. Bowel sounds positive. No organomegaly. Bowel sounds active. Extremities: No edema, clubbing, or cyanosis. Intact pulses. Skin: No rash noted. Neuro: Alert, awake, and oriented x3. No acute deficit appreciated. Investigations: No labs were done today. Assessment And Recommendation: Non ST-elevation myocardial infarction with typical symptoms. Contin ue baby aspirin and she is on Lovenox, to be discontinued after tonight's dose and keep her n.p.o. pa st midnight. Plan for coronary angiogram tomorrow morning and continue with Coreg and aspirin as well. SR/MODL Voice ID: [id number] Report ID: [id number]
[2022-04-01] MEDS: clonazePAM 0.5 MG TAB PO SCH (20:02)
[2022-04-01 20:23] LABS: Protime INR 0.97
[2022-04-01] MEDS ORDERED: clonazePAM 0.5 MG TAB PO SCH (21:00)
[2022-04-01 22:32] VITALS: BMI 21.1
[2022-04-02] MEDS: ASPIRIN 81 MG CHEWABLE TABLET PO SCH (08:34)
[2022-04-02] MEDS: carvediloL 3.125 MG TAB PO SCH (08:34)
[2022-04-02] MEDS: HOME MED 1 EA UNK (Cyanocobalamin (Vitamin B-12) [Vitamin B12] 2,500 MCG Tablet) PO SCH (08:35)
[2022-04-02] MEDS: clonazePAM 0.5 MG TAB PO SCH (08:35)
[2022-04-02] MEDS: HOME MED 1 EA UNK (Cholecalciferol (Vitamin D3) [Vitamin D3] 1,000 UNIT Capsule) PO SCH (08:36)
[2022-04-02] MEDS ORDERED: LIDOCAINE 1% MPF 5 ML VIAL ONE (11:04)
[2022-04-02] MEDS ORDERED: HEPA 1000U/500MLS 2,000 UNIT/1,000 ML BAG IV ONE (11:04)
[2022-04-02] MEDS ORDERED: NA CHLORIDE 0.9% 500 ML ONE (14:13)
--- NOTE | 2022-04-02 14:14 | EKG ---
Test Date: 2022-03-30 Test Time: 12:44:09 Multimedia Author: MEASUREMENT RESULTS: Intervals: Rate: 60 [place]: 202 QRSD: 84 QT: 418 QTc: 418 [place]: P: 93 [place]: 202 QRS: 43 T: -4 INTERPRETIVE STATEMENTS: Normal sinus rhythm Cannot rule out Anterior infarct, age undetermined Abnormal ECG Compared to ECG 03/20/2019 15:36:22 Myocardial infarct finding now present ST (T wave) deviation no longer present Electronically Signed On 04-02-22 14:10:24 CDT by Ankur Green
[2022-04-02] MEDS ORDERED: MIDAZOLAM HCL 2 MG/2 ML INJ ONE (15:07)
[2022-04-02] MEDS ORDERED: VERAPAMIL HCL 10 MG/4 ML VIAL IV ONE (15:07)
[2022-04-02] MEDS ORDERED: ASPIRIN 325 MG TAB ONE (15:07)
[2022-04-02] MEDS ORDERED: CLOPIDOGREL 75 MG TABLET ONE (15:07)
[2022-04-02] MEDS ORDERED: FENTANYL CITR 100 MCG/2 ML ONE (15:07)
[2022-04-02] MEDS ORDERED: HEPARIN 5000 UNIT/ML 1 ML VIAL ONE (15:07)
[2022-04-02] MEDS ORDERED: ATROPINE SULF 1 MG/10 ML SYR IV ONE (15:08)
[2022-04-02] MEDS ORDERED: TICAGRELOR 90 MG TABLET PO ONE (15:08)
[2022-04-02 18:34] VITALS: O2SAT 99
[2022-04-02 21:20] VITALS: BP 102/70; TEMP 98.1
--- NOTE | 2022-04-02 22:21 | PN ---
Date of Progress Note: 04/02/2022 Subjective: Seen by bedside. Still doing well. No further chest pain, status post coronary angiogr am today that did not show any coronary artery disease. Review of Systems: No chest pain, shortness of breath, orthopnea or cough. No nausea, vomiting, diarrhea. All other sy stems reviewed and they are negative. Physical Examination: Vital Signs: Temperature is 98.4, pulse is 53, breathing 18, blood pressure is 121/51, saturating 98 % on room air. General: Pleasant elderly female, no apparent distress. Head and Neck: Pupils are equal, reactive to light. Intact eye movements. No JVD. No cervical lym phadenopathy. Neck: Supple. Thyroid is not enlarged. Lungs: Clear to auscultation bilaterally. No rhonchi, rales, or crackles. No accessory muscle use. Heart: Regular rate and rhythm. No extra sounds. Abdomen: Soft, nontender. Bowel sounds positive. No organomegaly. No masses or hernia. Extremities: No edema, clubbing, cyanosis. Intact pulses. Skin: No rashes. Neurologic: Alert, awake, oriented x3. No acute focal deficits appreciated. Investigations: BUN 14, creatinine 0.73. Troponin 684. Coronary angiogram today showed a normal co ronary arteries and normal ejection fraction and LV gram. Assessment And Recommendation: Elevated troponin. This is a demand ischemia. Coronary angiogram di d not reveal any significant coronary artery disease and left ventricular ejection fraction is normal by left ventriculogram. From Cardiology standpoint, this patient can be released and will follow her up as an outpatient. SR/MODL Voice ID: [id number] Report ID: [id number]
--- NOTE | 2022-04-03 03:36 | OP ---
Date of Procedure: 04/02/2022 Surgeon: WILLIAM ORTIZ Procedures Performed: 1.Selective coronary angiogram. 2.Left heart catheterization. 3.Left ventriculogram. Indication: Non-ST elevation myocardial infarction. Access: Right radial artery 6-Beninese, closed with TR band. Complications: None. Bleeding: Less than 20 mL. Anesthesia: Total sedation time was 40 minutes. Description Of Procedure: After the risks, benefits, and alternatives were explained, the patient ag roger to proceed and signed informed consent. The patient was brought into the cardiac catheterizatio n laboratory, prepped and draped in the usual sterile fashion. Then, I accessed right radial artery using pediatric micropuncture kit, placed a 6-Beninese Slender sheath and took a 5-Beninese Thorpe 4.0 cat heter into the aortic root, engaged left main, right coronary artery, took standard views, and then a wire was advanced across the aortic valve into the LV and placed a pigtail, measured LVEDP. Pullbac k did not record any gradient. LV-gram was performed. Then the catheter and the sheath was removed and placed TR band with good hemostasis. Findings: 1.Left main is normal. 2.LAD; large vessel with luminal irregularities throughout, but no significant disease. 3.Left circumflex proximal 30%, a mid 30%, otherwise normal vessel. 4.RCA is large dominant with luminal irregularities. 5.Elevated LVEDP at 18 to 20 mmHg. 6.Normal LV ejection fraction of 65% to 70% with normal wall motion. Conclusion: 1.Nonobstructive coronary artery disease. 2.Normal LV ejection fraction and normal wall motion. 3.Slightly elevated LVEDP. Plan: Medical management. SR/MODL Voice ID: [id number] Report ID: [id number]
== END 2022-04-02 21:28 | disposition home or self-care (01) | DRG 287 ==
LOC: ER 11:48 → ERHOLD 20:30 → 4TH 03-31 01:22 → OBSVTOIN 03-31 10:43
PROVIDERS: ADMIT Internal Medicine; ATTEND Internal Medicine
PROC: 4A023N7 Measurement of Cardiac Sampling and Pressure, Left Heart, Percutaneous Approach (ICD-10-PCS; principal; 2022-04-02)
PROC: B2111ZZ Fluoroscopy of Multiple Coronary Arteries using Low Osmolar Contrast (ICD-10-PCS; 2022-04-02)
PROC: B2151ZZ Fluoroscopy of Left Heart using Low Osmolar Contrast (ICD-10-PCS; 2022-04-02)
DX: R07.9 Chest pain, unspecified (principal); I24.8 Other forms of acute ischemic heart disease; F41.0 Panic disorder [episodic paroxysmal anxiety]; K58.9 Irritable bowel syndrome, unspecified; K21.9 Gastro-esophageal reflux disease without esophagitis; R00.2 Palpitations; Z88.5 Allergy status to narcotic agent; Z88.8 Allergy status to other drugs, medicaments and biological substances; Z79.82 Long term (current) use of aspirin; Z79.899 Other long term (current) drug therapy; Z90.710 Acquired absence of both cervix and uterus; Z20.822 Contact with and (suspected) exposure to COVID-19
CPT/HCPCS: 36415; 71045; 76937; 80048; 80076; 83690; 83880; 84484; 85025; 85379; 85610; 85730; 87811; 93005; 93458; 96372; 96374; 99285; C1893; C9113; G0378; J1644; J1650; J2001; J2250; J3010; J7040; Q9967

== ENCOUNTER 2024-11-10 11:13 | Emergency (ER) | payer OTHER ==
[2024-11-10] MEDS ORDERED: FAMOTIDINE 20 MG/2 ML VIAL IV ONE (11:35)
[2024-11-10] MEDS ORDERED: NA CHLORIDE 0.9% 1,000 ML ONE (11:35)
--- NOTE | 2024-11-10 11:37 | RAD REPORT ---
EXAMINATION: ONE VIEW CHEST XR CLINICAL INDICATION: COUGH TECHNIQUE: Frontal chest projection is submitted. Examination is limited by patient positioning and t echnique. COMPARISON: 03/30/2022 FINDINGS: The lungs are diffusely emphysematous but grossly clear. Small left pleural effusion. The heart is mo derately enlarged in size. No displaced fractures identified. IMPRESSION: COPD without an acute process suspected.
[2024-11-10 11:38] LABS: Absolute Eosinophils 0.1 K/uL (0-0.5); Absolute Lymphocytes (CBC) 1.8 K/uL (0.7-4.9); Absolute Monocytes 0.5 K/uL (0.1-1.3); Absolute Neutrophil 2.9 K/uL (1.8-8.0); Basophils % 0.6 % (0-1.3); Eosinophils % 1.9 % (0-4.4); Hematocrit 39.1 % (36.0-45.0); Hemoglobin 13.3 g/dL (12.0-15.0); Lymphocytes % 33.9 % (15.3-44.8); MCHC 34.1 g/dL (32.0-36.0); MPV 6.9 fL (7.6-11.3); Neutrophils % 54.6 % (41.7-73.7); Nucleated Red Blood Cells % 0.1 % (0-0); Platelets 238 thou/uL (152-406); RBC Red Blood Cell Count 4.44 M/uL (3.86-4.86); Red Cell Distribution Width 13.8 % (12.1-15.2)
[2024-11-10 11:41] LABS: PT Prothrombin Time 10.8 SECONDS (10-13.0); Protime INR 0.94
[2024-11-10 12:14] LABS: ALT/SGPT 18 U/L (13-56); AST/SGOT 19 U/L (15-37); Albumin 3.3 g/dL (3.4-5.0); Albumin/Globulin Ratio 0.9 (1.1-1.8); Alkaline Phosphatase 76 U/L (45-117); Anion Gap 7.6 mEq/L (5.0-15.0); BUN Blood Urea Nitrogen 9 mg/dL (7-18); Bicarbonate 31 mEq/L (21-32); Bilirubin Total 0.5 mg/dL (0.2-1.0); Globulin 3.5 g/dL (2.3-3.5); Glomerular Filtration Rate 64 ml/min (=/>90); Glucose Level 112 mg/dL (74-106); Lipase 44 U/L (13-75); Magnesium 2.2 mg/dL (1.6-2.4); NT PRO-BNP 363 pg/mL (<450); Potassium 3.6 mEq/L (3.5-5.1); Protein, Total 6.8 g/dL (6.4-8.2); Sodium Level 138 mEq/L (136-145); Troponin High Sensitivity 3.9 pg/mL (<58.9)
[2024-11-10 12:15] LABS: Bilirubin Direct < 0.2 mg/dL (0-0.2); Bilirubin Indirect, Calculated 0.3 mg/dL (0.2-0.8)
--- NOTE | 2024-11-10 13:11 | RAD REPORT ---
EXAM: CT CHEST, ABDOMEN AND PELVIS WITH CONTRAST CLINICAL INDICATION: Female, 89 years old. ABDOMINAL DISTENTION TECHNIQUE: CT chest, abdomen, and pelvis was performed, following the administration of contrast, as per department protocol. Axial, sagittal and coronal reconstructions were obtained. One or more of the following dose reduction techniques were used: Automated exposure control, adjustment of the mA a nd/or kV according to patient size, and/or iterative reconstruction. Unless otherwise specified, incidental findings do not require dedicated imaging follow-up. COMPARISON: CT abdomen pelvis 08/09/2022. Chest radiograph the same day FINDINGS: LUNGS AND AIRWAYS: No evidence of airspace or interstitial process. Left lower lobe platelike atelect asis. No nodules. PLEURA: No pleural effusion. No pneumothorax. MEDIASTINUM AND LYMPH NODES: No mediastinal mass or fluid collection. Normal size mediastinal, hilar, and axillary lymph nodes. THORACIC AORTA: Normal caliber and configuration. PULMONARY ARTERIES: Normal caliber. OSSEOUS STRUCTURES AND CHEST WALL: Intact. LIVER: Normal in size and contour. Small fluid density lesions largest in the peripheral right lower lobe measuring 1 cm, and another ill-defined lesion adjacent to the IVC measuring 1.4 cm, favored to be benign, and appears stable. No focal lesion or biliary dilitation. BILIARY SYSTEM: No suspicious abnormalities. PANCREAS: No mass, ductal dilation, or rosy-pancreatic fluid. SPLEEN: Normal size. No focal lesion. ADRENALS: Normal; no mass. KIDNEYS AND URETERS: Large exophytic laterally directed cortical cyst of the right kidney measuring 7 cm, not significantly changed. Right kidney again assumes a transverse position. Normal size and contour otherwise. No hydronephrosis. URINARY BLADDER: Normal contour. GASTROINTESTINAL TRACT: No bowel obstruction, free air, significant free fluid or abscess. Distal co lonic diverticulosis without evidence of acute diverticulitis. APPENDIX: No inflammatory changes in region of appendix. Appendix itself was not well-visualized. LYMPH NODES: No lymphadenopathy. ABDOMINAL AORTA AND OTHER VESSELS: Normal caliber aorta and IVC. MUSCULOSKELETAL: No acute or suspicious osseous abnormality. IMPRESSION: No acute or significant abnormalities seen in the chest, abdomen or pelvis. Benign incidental findings as above.
[2024-11-10 14:12] LABS: Specific Gravity 1.026 (1.005-1.030); Urine Bilirubin NEGATIVE (Negative); Urine Blood Negative (Negative); Urine Clarity Clear (Clear); Urine Color Colorless (Yellow); Urine Glucose NEGATIVE (Negative); Urine Ketones NEGATIVE (Negative); Urine Microscopic Reflex YN NO UMIC; Urine Nitrite NEGATIVE (Negative); Urine Protein NEGATIVE (Negative); Urine Urobilinogen Normal (Normal); Urine pH 7.5 (5.0-7.0)
--- NOTE | 2024-11-10 16:09 | ER ---
Nurse's Notes [facility] Name: Mary Damian Age: 89 yrs Sex: Female : 1935 Arrival Date: 11/10/2024 Time: 11:13 Bed 17 Private MD: Diagnosis: Abdominal pain, Generalized Presentation: 11/10 11:22 Chief complaint: EMS states: "toned out from [facility] for abdominal pain and nausea mb9 that has been occurring intermittently for 1 week. Recently diagnosed with inflamed stomach. Gave 1.25 mg of Droperidol [employer].". Coronavirus screen: Vaccine status: Patient reports receiving the 2nd dose of the covid vaccine. Ebola Screen: No symptoms or risks identified at this time. Initial Sepsis Screen: Does the patient meet any 2 criteria? No. Patient's initial sepsis screen is negative. Does the patient have a suspected source of infection? No. Patient's initial sepsis screen is negative. Risk Assessment: Do you want to hurt yourself or someone else? Patient reports no desire to harm self or others. Onset of symptoms was November 10, 2024. Care prior to arrival:. 11:22 Method Of Arrival: EMS: [facility] mb9 11:22 Acuity: NICOLAS 3 mb9 Triage Assessment: 11:27 General: Appears in no apparent distress. Behavior is calm, cooperative. Pain: mb9 Complains of pain in abdomen Pain does not radiate. Pain currently is 2 out of 10 on a pain scale. Quality of pain is described as burning, Pain began suddenly, Is continuous. EENT: No deficits noted. Cardiovascular: Patient's skin is warm and dry. Respiratory: Airway is patent Respiratory effort is even, unlabored, Respiratory pattern is regular, symmetrical. GI: Abdomen is flat, non-distended, Bowel sounds present X 4 quads. Abd is soft Abdomen is tender to palpation Reports diarrhea. : No signs and/or symptoms were reported regarding the genitourinary system. Derm: No signs and/or symptoms reported regarding the dermatologic system. Historical: - Allergies: 11:24 Pure Vitamins; mb9 11:24 Librax; mb9 11:24 Evista; mb9 11:24 Codeine; mb9 11:24 BENZODIAZEPINES; ( Ativan; mb9 11:24 Actonel; mb9 11:24 Morphine; mb9 - Home Meds: 11:24 carvedilol 3.125 mg oral tablet 1 tab 2 times per day [Active]; mb9 - PMHx: 11:24 Irregular heart rate; Irritable bowel syndrome; Hypertensive disorder; mb9 - PSHx: 11:24 Total abdominal hysterectomy; cardiac stent; mb9 - Immunization history:: Adult Immunizations up to date. - Infectious Disease History:: Denies. - Social history:: Smoking status: Patient denies any tobacco usage or history of. Screenin:49 [facility] ED Fall Risk Assessment (Adult) History of falling in the last 3 months, mb9 including since admission No falls in past 3 months (0 pts) Confusion or Disorientation No (0 pts) Intoxicated or Sedated No (0 pts) Impaired Gait No (0 pts) Mobility Assist Device Used No (0 pt) Altered Elimination No (0 pt) Score/Fall Risk Level 0 - 2 = Low Risk Oriented to surroundings, Maintained a safe environment, Educated pt \\T\\ family on fall prevention, incl call for assistance when getting out of bed. Abuse screen: Denies threats or abuse. Nutritional screening: No deficits noted. Tuberculosis screening: No symptoms or risk factors identified. Assessment: 11:49 Reassessment: see triage assessment. mb9 Vital Signs: 11:22 BP 167 / 80; Pulse 66; Resp 18; Temp 97.8; Pulse Ox 100% ; Weight 48.53 kg; Height 5 mb9 ft. 7 in. ; Pain 2/10; 12:30 BP 172 / 77; Pulse 72; Resp 16; Pulse Ox 97% on R/A; dd2 13:30 BP 153 / 78; Pulse 60; Resp 16; Pulse Ox 98% on R/A; dd2 15:00 BP 154 / 79; Pulse 67; Resp 15; Pulse Ox 97% on R/A; dd2 16:45 BP 165 / 76; Pulse 68; Resp 16; Temp 98.3; Pulse Ox 98% ; dd2 11:22 Body Mass Index 16.76 (48.53 kg, 170.18 cm) mb9 11:22 Pain Scale: Adult mb9 ED Course: 11:13 Patient arrived in ED. mb9 11:14 Bossman Rubio MD is Attending Physician. alden 11:15 Maintain EMS IV. Dressing intact. Good blood return noted. Site clean \\T\\ dry. Gauge \\T\\ mb 9 site: 20g right AC. Flushed with 10 mL NS. 11:22 Fannie Martínez, TAMIKO is Primary Nurse. mb9 11:24 Triage completed. mb9 11:27 Arm band placed on. mb9 11:29 XRAY Chest (1 view) In Process Unspecified. EDMS 11:40 EKG done, by ED staff, reviewed by Bossman Rubio MD. mb9 11:49 Placed in gown. Bed in low position. Call light in reach. Side rails up X 1. Provided mb9 Education on: press call light if needing anything. Client placed on continuous cardiac and pulse oximetry monitoring. NIBP monitoring applied. imitation marble mechanic on. 12:39 CT Chest, Abdomen, Pelvis - W/Contrast In Process Unspecified. EDMS 16:08 Cristina Menon MD is Referral Physician. alden 17:01 No provider procedures requiring assistance completed. IV discontinued, intact, dd2 bleeding controlled, No redness/swelling at site. Pressure dressing applied. Administered Medications: 11:48 Drug: NS 0.9% IV 500 ml 500 ml IV at 1 bolus once; to be given as a bolus over 30 mb9 minutes Volume: 500 ml; Route: IV; Rate: 1 bolus; Site: right antecubital; 12:18 Follow up: IV Status: Completed infusion dd2 11:48 Drug: NS 0.9% IV 500 ml 500 ml IV at 125 ml/hr once; to be given as a bolus over 30 mb9 minutes Volume: 500 ml; Route: IV; Rate: 125 ml/hr; Site: right antecubital; 12:18 Follow up: IV Status: Completed infusion dd2 11:48 Drug: Famotidine IVP 20 mg IVP once; dilute with 10 mL 0.9% NaCl; give over 2 minutes mb9 Route: IVP; Site: right antecubital; 12:03 Follow up: Response: No adverse reaction dd2 Medication: 17:01 VIS not applicable for this client. dd2 Outcome: 16:09 Discharge ordered by . alden 17:01 Discharged to home via wheelchair, with family, dd2 17:01 Condition: stable 17:01 Discharge instructions given to patient, Instructed on discharge instructions, follow up and referral plans. medication usage, Demonstrated understanding of instructions, follow-up care, medications, Prescriptions given X 3, 17:01 Patient left the ED. dd2 Signatures: Dispatcher [employer] EDBossman García MD MD cha Wilkerson, Fannie Bowling, RN RN mb9 SHAYNE HOBSON RN RN dd2
--- NOTE | 2024-11-10 16:09 | EDPHYS ---
Physician Documentation [facility] Name: Mary Damian Age: 89 yrs Sex: Female : 1935 Arrival Date: 11/10/2024 Time: 11:13 Bed 17 Private MD: ED Physician Bossman Rubio HPI: 11/10 16:01 This 89 yrs old Female presents to ER via EMS with complaints of Abdominal alden Pain. 16:01 The patient presents with abdominal pain in the upper abdomen, in the lower abdomen. alden Onset: The symptoms/episode began/occurred this morning. The symptoms do not radiate. Associated signs and symptoms: none. The symptoms are described as crampy. Modifying factors: The symptoms are alleviated by nothing, the symptoms are aggravated by nothing. Severity of pain: At its worst the pain was mild moderate in the emergency department the pain has improved moderately. The patient has not experienced similar symptoms in the past. Historical: - Allergies: 11:24 Pure Vitamins; mb9 11:24 Librax; mb9 11:24 Evista; mb9 11:24 Codeine; mb9 11:24 BENZODIAZEPINES; ( Ativan; mb9 11:24 Actonel; mb9 11:24 Morphine; mb9 - Home Meds: 11:24 carvedilol 3.125 mg oral tablet 1 tab 2 times per day [Active]; mb9 - PMHx: 11:24 Irregular heart rate; Irritable bowel syndrome; Hypertensive disorder; mb9 - PSHx: 11:24 Total abdominal hysterectomy; cardiac stent; mb9 - Immunization history:: Adult Immunizations up to date. - Infectious Disease History:: Denies. - Social history:: Smoking status: Patient denies any tobacco usage or history of. ROS: 16:02 Constitutional: Negative for fever, chills, and weight loss, Eyes: Negative for injury, alden pain, redness, and discharge, ENT: Negative for injury, pain, and discharge, Neck: Negative for injury, pain, and swelling, Cardiovascular: Negative for chest pain, palpitations, and edema, Respiratory: Negative for shortness of breath, cough, wheezing, and pleuritic chest pain, Back: Negative for injury and pain, : Negative for injury, bleeding, discharge, and swelling, MS/Extremity: Negative for injury and deformity, Skin: Negative for injury, rash, and discoloration, Neuro: Negative for headache, weakness, numbness, tingling, and seizure, Psych: Negative for depression, anxiety, suicide ideation, homicidal ideation, and hallucinations, Allergy/Immunology: Negative for hives, rash, and allergies, Endocrine: Negative for neck swelling, polydipsia, polyuria, polyphagia, and marked weight changes, Hematologic/Lymphatic: Negative for swollen nodes, abnormal bleeding, and unusual bruising, 16:02 Abdomen/GI: Positive for abdominal pain, of the right upper quadrant, left upper quadrant, right lower quadrant and left lower quadrant, Exam: 16:02 Constitutional: This is a well developed, well nourished patient who is awake, alert, alden and in no acute distress. Head/Face: Normocephalic, atraumatic. Eyes: Pupils equal round and reactive to light, extra-ocular motions intact. Lids and lashes normal. Conjunctiva and sclera are non-icteric and not injected. Cornea within normal limits. Periorbital areas with no swelling, redness, or edema. ENT: Nares patent. No nasal discharge, no septal abnormalities noted. Tympanic membranes are normal and external auditory canals are clear. Oropharynx with no redness, swelling, or masses, exudates, or evidence of obstruction, uvula midline. Mucous membranes moist. Neck: Trachea midline, no thyromegaly or masses palpated, and no cervical lymphadenopathy. Supple, full range of motion without nuchal rigidity, or vertebral point tenderness. No Meningismus. Chest/axilla: Normal chest wall appearance and motion. Nontender with no deformity. No lesions are appreciated. Cardiovascular: Regular rate and rhythm with a normal S1 and S2. No gallops, murmurs, or rubs. Normal PMI, no JVD. No pulse deficits. Respiratory: Lungs have equal breath sounds bilaterally, clear to auscultation and percussion. No rales, rhonchi or wheezes noted. No increased work of breathing, no retractions or nasal flaring. Back: No spinal tenderness. No costovertebral tenderness. Full range of motion. Female : Normal external genitalia. Skin: Warm, dry with normal turgor. Normal color with no rashes, no lesions, and no evidence of cellulitis. MS/ Extremity: Pulses equal, no cyanosis. Neurovascular intact. Full, normal range of motion., bilateral aka Neuro: Awake and alert, GCS 15, oriented to person, place, time, and situation. Cranial nerves II-XII grossly intact. Motor strength 5/5 in all extremities. Sensory grossly intact. Cerebellar exam normal. Normal gait. Psych: Awake, alert, with orientation to person, place and time. Behavior, mood, and affect are within normal limits. 16:02 ECG was reviewed by the Attending Physician. 16:02 Abdomen/GI: Inspection: abdomen appears normal, Bowel sounds: normal, Palpation: abdomen is soft and non-tender, Liver: no appreciated palpable abnormalities, Hernia: not appreciated, Vital Signs: 11:22 BP 167 / 80; Pulse 66; Resp 18; Temp 97.8; Pulse Ox 100% ; Weight 48.53 kg; Height 5 mb9 ft. 7 in. ; Pain 2/10; 12:30 BP 172 / 77; Pulse 72; Resp 16; Pulse Ox 97% on R/A; dd2 13:30 BP 153 / 78; Pulse 60; Resp 16; Pulse Ox 98% on R/A; dd2 15:00 BP 154 / 79; Pulse 67; Resp 15; Pulse Ox 97% on R/A; dd2 16:45 BP 165 / 76; Pulse 68; Resp 16; Temp 98.3; Pulse Ox 98% ; dd2 11:22 Body Mass Index 16.76 (48.53 kg, 170.18 cm) mb9 11:22 Pain Scale: Adult mb9 MDM: 11:14 Medical Screening Exam initiated alden 16:03 Differential diagnosis: bowel obstruction, coronary artery disease, Cholelithiasis, alden diverticulitis, gastritis, Mesenteric ischemia or infarction, non-specific abd pain, pancreatitis, Peptic Ulcer Disease, Pyelonephritis, urinary tract infection. Data reviewed: vital signs, nurses notes, EMS record, lab test result(s), EKG, radiologic studies, CT scan, plain films. Consideration of Admission/Observation Escalation of care including admission/observation considered. I considered the following discharge prescriptions or medication management in the emergency department Medications were administered in the Emergency Department. See MAR. Independent interpretation of the following test(s) in the Emergency Department EKG: See my EKG interpretation above. Test considered but Not performed: Ultrasound no abd usg. Care significantly affected by the following chronic conditions: Hypertension, irr hr,ibs. Counseling: I had a detailed discussion with the patient and/or guardian regarding the historical points, exam findings, and any diagnostic results supporting the discharge/admit diagnosis, lab results, radiology results, the need for outpatient follow up, for definitive care, a family practitioner, a director of accreditation. 11/10 11:17 Order name: Basic Metabolic Panel; Complete Time: 14:56 [facility] 11/10 11:17 Order name: CBC with Diff; Complete Time: 14:56 [facility] 11/10 11:17 Order name: LFT's; Complete Time: 14:56 [facility] 11/10 11:17 Order name: Magnesium; Complete Time: 14:56 [facility] 11/10 11:17 Order name: NT PRO-BNP; Complete Time: 14:56 [facility] 11/10 11:17 Order name: PT-INR; Complete Time: 14:56 [facility] 11/10 11:17 Order name: Troponin HS; Complete Time: 14:56 [facility] 11/10 11:17 Order name: Lipase; Complete Time: 14:56 [facility] 11/10 11:17 Order name: UA Rfx Fredy Cult if indicated; Complete Time: 14:56 [facility] 11/10 11:17 Order name: XRAY Chest (1 view); Complete Time: 14:56 [facility] 11/10 11:17 Order name: CT Chest, Abdomen, Pelvis - W/Contrast; Complete Time: 14:56 [facility] 11/10 11:17 Order name: Cardiac monitoring; Complete Time: 11:28 [facility] 11/10 11:17 Order name: EKG - Nurse/Tech; Complete Time: 11:48 [facility] 11/10 11:17 Order name: IV Saline Lock; Complete Time: 11:28 [facility] 11/10 11:17 Order name: Labs collected and sent; Complete Time: 11:28 [facility] 11/10 11:17 Order name: O2 Per Protocol; Complete Time: 11:28 [facility] 11/10 11:17 Order name: O2 Sat Monitoring; Complete Time: 11:28 [facility] EC:02 Rate is 68 beats/min. Rhythm is regular. QRS [place] is Normal. [place] interval is normal. QRS [place]den interval is normal. QT interval is normal. No Q waves. T waves are Normal. No ST changes noted. Clinical impression: NSR w/ Non-specific ST/T Changes and No evidence of ischemia. Interpreted by me. Reviewed by me. Administered Medications: 11:48 Drug: NS 0.9% IV 500 ml 500 ml IV at 1 bolus once; to be given as a bolus over 30 mb9 minutes Volume: 500 ml; Route: IV; Rate: 1 bolus; Site: right antecubital; 12:18 Follow up: IV Status: Completed infusion dd2 11:48 Drug: NS 0.9% IV 500 ml 500 ml IV at 125 ml/hr once; to be given as a bolus over 30 mb9 minutes Volume: 500 ml; Route: IV; Rate: 125 ml/hr; Site: right antecubital; 12:18 Follow up: IV Status: Completed infusion dd2 11:48 Drug: Famotidine IVP 20 mg IVP once; dilute with 10 mL 0.9% NaCl; give over 2 minutes mb9 Route: IVP; Site: right antecubital; 12:03 Follow up: Response: No adverse reaction dd2 Disposition Summary: 11/10/24 16:09 Discharge Ordered Notes: Location: Home alden Problem: new alden Symptoms: have improved alden Condition: Stable alden Diagnosis - Abdominal pain, Generalized alden Followup: alden - With: Private Physician - When: 2 - 3 days - Reason: Recheck today's complaints, Continuance of care, Re-evaluation by your physician Followup: alden - With: Cristina Menon MD - When: 2 - 3 days - Reason: Recheck today's complaints, Re-evaluation by your physician Discharge Instructions: - Discharge Summary Sheet alden - Abdominal Pain, Adult alden - Abdominal Pain, Adult, [id number] [facility] Forms: - Medication Reconciliation Form [facility] - Antibiotic Education alden - Prescription Opioid Use alden - Patient Portal Instructions [facility] - Leadership Thank You Letter [facility] Prescriptions: - ondansetron 8 mg Oral Tablet,disintegrating - take 1 tablet ORAL route every 8 hours as needed for nausea and vomiting; 20 alden tablet; Refills: 0, Product Selection Permitted - Pepcid 20 mg Oral tablet - take 1 tablet ORAL route every 12 hours for 21 days; 42 tablet; Refills: 0, alden Product Selection Permitted - dicyclomine 20 mg Oral tablet - take 1 tablet ORAL route 4 times per day; 28 tablet; Refills: 0, Product alden Selection Permitted Signatures: Dispatcher [employer] Bossman Chávez MD MD cha Wilkerson, Fannie Bowling RN RN mb9 SHANYE HOBSON RN dd2 Corrections: (The following items were deleted from the chart) 11:17 11:17 BASIC METABOLIC PANEL+C.LAB.BRZ ordered. EDMS EDMS 11:17 11:17 CBC+H.LAB.BRZ ordered. EDMS EDMS 11:17 11:17 HEPATIC FUNCTION+C.LAB.BRZ ordered. EDMS EDMS 11:17 11:17 MAGNESIUM+C.LAB.BRZ ordered. EDMS EDMS 11:17 11:17 PROBNP+C.LAB.BRZ ordered. EDMS EDMS 11:17 11:17 PROTIME (+INR)+COAG.LAB.BRZ ordered. EDMS EDMS 11: 11:17 Troponin High Sensitivity+C.LAB.BRZ ordered. EDMS EDMS 11:17 11:17 LIPASE+C.LAB.BRZ ordered. EDMS EDMS 11: 11:17 UA Rfx Fredy Cult if indicated+U.LAB.BRZ ordered. EDMS EDMS 11:17 11:17 Chest Single View+RAD.RAD.BRZ ordered. EDMS EDMS 11:17 11:17 Chest Abdomen Pelvis W Con+CT.RAD.BRZ ordered. EDMS EDMS
[2024-11-10 21:08] VITALS: BP 165/76; TEMP 98.3; O2SAT 98
--- NOTE | 2024-11-12 11:49 | EKG ---
Test Date: 2024-11-10 Test Time: 11:33:49 Investment Trader: JESUS MEASUREMENT RESULTS: Intervals: Rate: 68 FL: 182 QRSD: 88 QT: 392 QTc: 416 [place]: P: 69 FL: 182 QRS: -1 T: 26 INTERPRETIVE STATEMENTS: Sinus rhythm with premature atrial complexes with aberrant conduction Otherwise normal ECG Compared to ECG 03/30/2022 12:44:09 Atrial premature complex(es) now present Aberrant conduction of supraventricular beat(s) now present Myocardial infarct finding no longer present Electronically Signed On 11-12-24 11:43:55 CDT by Shay Ramírez
== END 2024-11-10 17:01 | disposition home or self-care (01) ==
LOC: ER 11:13
DX: R10.84 Generalized abdominal pain (principal); I10 Essential (primary) hypertension; Z95.818 Presence of other cardiac implants and grafts
CPT/HCPCS: 93005; 85025; 80048; 36415; 83735; 85610; 80076; 81003; 84484; 83690; 83880; 71260; 74177; 71045; 96374; 99285; Q9967; J7040